=== PATIENT | male | born 1960 | race Caucasian/White ===

== ENCOUNTER → 2020-06-18 09:29 | Outpatient (CLI) | payer OTHER, SELFPAY ==
[2020-06-18 20:13] LABS: SARS-CoV-2 RNA PCR Negative
== END ==
PROVIDERS: PCP Nurse Practitioner Adult Health; Visit Provider Nurse Practitioner Adult Health
DX: J01.90 Acute sinusitis, unspecified (principal); Z20.822 Contact with and (suspected) exposure to COVID-19
CPT/HCPCS: C9803; U0003; U0005

== ENCOUNTER 2025-01-24 01:06 | Day surgery (SDC) | payer MEDICARE, SELFPAY ==
[2025-01-19 15:44] VITALS: BMI 29.7
--- NOTE | 2025-01-19 15:56 | PC.NURSE ---
[facility] has started construction of its new state of the art ER which will open Spring 2026. With this, we anticipate parking may be a challenge for some our surgical patients and families. Parking spaces are limited but are available for all Surgical, obstetrics, and ER patients sharing this lot. If you arrive and find you are having a hard time finding a parking space, please note that we understand the challenges, please drive around the hospital and park near Hospital Entrance 1. When you enter this entrance, you can ask a volunteer to direct or take you back to the surgical waiting area to check in. We appreciate everyone?s understanding of these expected challenges while we build for your future. Report to the Outpatient Waiting Room, entrance under the green pavilion located off [address], at time __7:30AM__ on date __01/24/25__. Planned Procedure Time: _ 9:30AM__ Time changes happen often and if your time is changed the preop area will call you the afternoon before. - You and your visitor will be asked to self-screen and do not enter if you have any COVID symptoms. Please call surgeon if you need to reschedule. - A mask is optional within the hospital at this time. Patients may have clear liquids (water, carbonated beverages, clear teas, apple juice) until 3 hours prior to surgery (6:30AM) with a maximum of 20 ounces. - No food from midnight until time of surgery and no smoking, or chewing tobacco (or any form of nicotine). No chewing gum, candy or mints. Take only the following medications with a SIP of water on the morning of surgery: ____NONE DO NOT STOP ANY OF YOUR OTHER PRESCRIPTION MEDICATIONS PRIOR TO SURGERY EXCEPT THE FOLLOWING Hold all vitamins and supplements for 3 days per anesthesiologist. Medications to discontinue per physician ____HOLD IBUPROFEN 7 DAYS PRE-OP PER DR CRUZ____ Date to take last dose 1- Please no make-up, nail anguillan, hairspray, perfume, deodorant, or body powder the day of surgery.? No jewelry (including any body piercings) or valuables the day of surgery, leave them at home.? Please take a shower or bath the night before, or the morning of, surgery with an antibacterial soap.? Wear comfortable, loose fitting clothing.? - Jewelry must be removed prior to entering the operating room.? Rings and piercings that are not removed may be cut off. - The hospital will not accept responsibility for valuables.? - Please leave all valuables, including medications, at home the day of surgery. If you are going home after surgery, a licensed local [place] truck driver must drive you home.? - NO public transportation without another adult if you receive anesthesia. - We recommend that an adult stay with you for 24 hours following discharge. - We also recommend that you do not drive, make important decision, drink alcoholic beverages, or take any drugs that were not prescribed by your health care provider for at least 24 hours after your discharge time. Follow any additional instructions given to you from your surgeon. Telephone instructions given to ____PATIENT and asked if any additional questions and then verbalized understanding. Patient advised to call surgeon office or pre surgery nurse liaison [phone] if any additional questions.
--- OUTSIDE RECORDS SUMMARY | 2025-01-24 01:09 | XMS_ITS | Clinical Summary ---
Author Organization [facility] Address [address] [place] [address] Care Team Providers Care Abattoir Supervisor Name Role Phone Idalmis Drew MD Primary Care Provider [phone] Allergies Active Allergy Reactions Criticality Noted Date Comments Penicillins Rash Medium 02/05/2015 Medications methocarbamoL (ROBAXIN) 500 mg tablet Take 2 tablets (1,000 mg total) by mouth 3 (three) times a day as needed 09/01/2019 Active atorvastatin (LIPITOR) 20 mg tablet 1 tablet (20 mg total) 03/09/2022 Active ibuprofen (ADVIL,MOTRIN) 200 mg tab/cap Take 3 tablet/capsu le (600 mg total) by mouth 3 (three) times a day Active traMADoL (ULTRAM) 50 mg tablet 04/16/2022 Active Active Problems Problem Noted Date Diagnosed Date Spinal stenosis 03/05/2022 Hyperlipidemia 09/11/2021 Primary hypertension 08/30/2019 Cervical radiculopathy 05/24/2019 Overview (03/27/2022): Added automatically from request for surgery [id number] Hyperglycemia 03/31/2019 Cholecystitis with cholelithiasis 02/05/2015 Immunizations Immunization Administration Dates Next Due Influenza, Quadrivalent, Spl it, Intramuscular 01/05/2019,01/07/2018 Influenza, Quadrivalent, Spl it, Preservative Free, Intramuscular 02/17/2021,01/05/2018 Influenza, Trivalent, IM (MDV) 02/09/2015,2013 Tdap 07/03/2021, 2,06/01/2019,02/09 ZOSTER Recombinant 06/19/2021,02/17/2021 Surgical History Surgery Date Site/Laterality Comments CHOLECYSTECTOMY 03/23/2017 - 03/22/2018 CARPAL TUNNEL RELEASE 03/23/2015 - 03/22/2016 CERVIX SURGERY 03/23/2020 - 03/22/2021 Medical History Medical History Date Comments Gastric reflux Arthritis Anxiety Social History Tobacco Use Types Packs/Day Years Used Date Smoking Tobacco: Unknown Tobacco Cessation:Counseling Given: Not Answered AUDIT-C Answer Date Recorded Q1: How often do you have a drink containing alcohol? 4 or more times a week 04/17/2022 Q2: How many drinks containi ng alcohol do you have on a typical day when you are drinking? 1 or 2 Q3: How often do you have si x or more drinks on one occasion? 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 FUNDRAISING DIRECTOR Gender Identity Male 04/24/2022 12:46 PM EDUCATIONAL FUNDRAISING DIRECTOR Sexual Orientation Not on file Last Filed Vital Signs Vital Sign Reading Time Taken Comments Blood Pressure 138/82 07/10/2022 2:38 PM CDT Pulse 79 07/10/2022 2:38 PM CDT Temperature 36.5 C (97.7 F) 07/10/2022 2:38 PM CDT Respiratory Rate 16 07/10/2022 2:38 PM CDT Oxygen Saturation 97% 07/10/2022 2:38 PM CDT Inhaled Oxygen Concentration - - Weight 73.5 kg (162 lb) 07/10/2022 2:38 PM CDT Height 157.5 cm (5' 2) 07/10/2022 2:38 PM CDT Body Mass Index 29.63 07/10/2022 2:38 PM CDT Plan of Treatment Health Maintenance Due Date Last Done Comments Colon Cancer Screening-Colonoscopy 1960 Depression Screening 1960 Hepatitis C Screening 1960 Prostate Cancer Screening-PSA 1959 Hepatitis B Screening 1977 Pneumococcal vaccine 65+ (1 of 1 - PCV) 2009 Fall Risk Assessment 04/17/2023 04/17/2022 Abdominal Aortic Aneurysm (A AA) Screen 2024 Well Visit 65+ 2024 Covid-19 Vaccine (3 - 2024-2 6 season) 2024 07/03/2021, 06/19/2021 Influenza Vaccine (#1) 2024 , 01/05/2019, 01/07/2018, Additional history exists DTaP/Tdap/Td Vaccine (5 - Td or Tdap) 07/04/2031 07/03/2021, 06/19/2021, 06/01/2019, Additional history exists Zoster Vaccine Completed 06/19/2021, 02/17/2021 Goals Goal Patient Goal Type Associated Problems Recent Progress Patient-Stated? Author CCM Chronic Pain Care Plan Chronic Care Management No Corin Morales APRN Note: Problem: Chronic Pain Goals: 1. Minimize further functional decline 2. Maximize quality of life 3. Control pain Strategies: - Activity/exercise program recommendation - Conservative stepwise pain medicine strategy with multi-disciplinary approach - Recommend healthy lifestyle strategies and compensatory methods as needed Insurance [facility] CHOICE PLUS Care Teams Abattoir Supervisor Relationship Specialty Start Date End Date Idalmis Drew MD [facility] [place] [address] PCP - General Family Medicine 03/12/22
--- OUTSIDE RECORDS SUMMARY | 2025-01-24 01:09 | XMS_ITS | Clinical Summary ---
Author Organization [facility] Address [address] [place] [address] Phone Care Team Providers Care Bottom Worker Name Role Phone Martha Rios MD Primary Care Provider [phone] Allergies Active Allergy Reactions Criticality Noted Date Comments Penicillins Rash Low 02/05/2015 Medications No known medications Active Problems Problem Noted Date Diagnosed Date Cholecystitis with cholelithiasis 02/05/2015 Social History Tobacco Use Types Packs/Day Years Used Date Smoking Tobacco: Never Alcohol Use Standard Drinks/Week Comments Yes 14 (1 standard drink = 0.6 oz pu re alcohol) Sex and Gender Information Value Date Recorded Sex Assigned at Not on file Legal Sex Male 3:45 PM LEAD MOBILE DEVELOPER Gender Identity Not on file Sexual Orientation Not on file Last Filed Vital Signs Vital Sign Reading Time Taken Comments Blood Pressure 134/86 02/14/2015 9:26 AM LEAD MOBILE DEVELOPER rt wrist Pulse 77 02/14/2015 9:26 AM LEAD MOBILE DEVELOPER Temperature 36.6 C (97.8 F) 02/06/2015 9:09 PM LEAD MOBILE DEVELOPER Respiratory Rate 16 02/06/2015 9:09 PM LEAD MOBILE DEVELOPER Oxygen Saturation 95% 02/06/2015 9:09 PM LEAD MOBILE DEVELOPER Inhaled Oxygen Concentration - - Weight 73 kg (161 lb) 02/14/2015 9:26 AM LEAD MOBILE DEVELOPER Height 160 cm (5' 3) 02/14/2015 9:26 AM LEAD MOBILE DEVELOPER Body Mass Index 28.52 02/14/2015 9:26 AM LEAD MOBILE DEVELOPER Plan of Treatment Health Maintenance Due Date Last Done Comments DTAP/TDAP/TD VACCINES (1 - Tdap) 1978 COLORECTAL SCREENING 2004 Colorectal Cancer Screening 2004 FIT-DNA Q 3 years 2004 FIT/FOBT Q 1 year 2004 Flex Sig/CT Colonography Q 5 years 2004 PNEUMOCOCCAL VACCINE 50+ YEARS (1 of 1 - PCV) 03/25/19 10 ZOSTER VACCINE (1 of 2) 2009 INFLUENZA VACCINE (#1) 2024 RSV VACCINE (60+ or ) (1 - 1-dose 75+ series) 2034 Insurance OPTIONS PPO [id number] Advance Directives For more information, please contact: [phone] * Full Code (Latest Code Status on File) Date Activated Date Inactivated Comments 02/06/2015 7:33 PM 02/07/2015 12:17 AM * Full Code Date Activated Date Inactivated Comments 02/06/2015 4:44 PM 02/06/2015 7:33 PM Care Teams Bottom Worker Relationship Specialty Start Date End Date Martha Rios MD [address] [address] PCP - General 03/09/15
--- OUTSIDE RECORDS SUMMARY | 2025-01-24 01:09 | XMS_ITS | Clinical Summary ---
Author Organization [facility] Address [address] [place] [id number] Care Team Providers Care Steam Fitter Name Role Phone Unavailable Primary Care Provider Unavailabl e Social History Tobacco Use Types Packs/Day Years Used Date Smoking Tobacco: Never Assessed Sex and Gender Information Value Date Recorded Sex Assigned at Not on file Legal Sex Male 1:37 PM CIGAR PACKER AND SORTER Gender Identity Not on file Sexual Orientation Not on file Plan of Treatment Health Maintenance Due Date Last Done Comments Colorectal Cancer Screening Colonoscopy (10 Years) 1959 Hepatitis C 1977 DTaP, Tdap and Td Vaccines ( 1 - Tdap) 1978 Pneumococcal Vaccine: 50+ Ye ars (1 of 1 - PCV) 2009 Zoster Vaccines (1 of 2) 2009 COVID-19 Vaccine ( - 2024-2 6 season) 2024 Influenza Adult (#1) 2024 RSV Immunization or 60+ Years (1 - 1-dose 75+ series) 2034 Hepatitis A Vaccines Aged Out No long er eligible based on patient's age to complete this topic Meningococcal B Vaccine Aged Out No l onger eligible based on patient's age to complete this topic Meningococcal Vaccine Aged Out No yamilet palomo eligible based on patient's age to complete this topic RSV Immunizations Under 20 Months Aged Out No longer eligible based on patient's age to complete this topic
--- OUTSIDE RECORDS SUMMARY | 2025-01-24 01:09 | XMS_ITS | Encounter Summary ---
Author Organization [facility] Address [address] [place] [address] Phone Care Team Providers Care Patient Case Coordinator Name Role Phone Octaviano Magda PENA Primary Care Provider [phone] Idalmis Drew MD Primary Care Provider [phone] Encounter Details Date Type Department Care Team (Late st Contact Info) Description 03/24/2019 Telephone [facility] Medicine Neurosurgery [address] [facility] 6th [place] [address] [place] [address] Sola Queen BS Social History Tobacco Use Types Packs/Day Years Used Date Smoking Tobacco: Never Assessed Sex and Gender Information Value Date Recorded Sex Assigned at Not on file Legal Sex Male 1:26 PM PLANT WIRE CHIEF Gender Identity Male 04/24/2022 12:46 PM PLANT WIRE CHIEF Sexual Orientation Not on file documented as of this encounter Miscellaneous Notes * Telephone Encounter - Saranya Velasco BS - 05/13/2019 8:29 AM PLANT WIRE CHIEF Waiting on MRI report from - [facility] T WIRE CHIEF * Telephone Encounter - Debby Hendrix CNA - 05/02/2019 12:34 PM PLANT WIRE CHIEF CER- Appt 06/01 NW- Lvm for pt to call us back- need records and MRI report faxed T WIRE CHIEF * Telephone Encounter - Radha Dejesus CNA - 03/24/2019 11:53 AM PLANT WIRE CHIEF Cer-Sent request for records for 06/01 appt. T WIRE CHIEF * Telephone Encounter - Sola Queen BS - 03/24/2019 11:33 AM PLANT WIRE CHIEF CER- reg/intake updated, waiting on ALL records/imaging reports. Appt 06/01 @12:30PM. He will bring CD and arrive early for Xrays T WIRE CHIEF documented in this encounter Plan of Treatment Not on file documented as of this encounter Visit Diagnoses Not on filedocumented in this encounter Care Teams Patient Case Coordinator Relationship Specialty Start Date End Date Magda Brumfield NP PCP - General Nurse Practitioner 03/24/19 03/11/22 Idalmis Drew MD [facility] [place] [address] PCP - General Family Medicine 03/12/22 documented as of this encounter
--- NOTE | 2025-01-24 08:27 | WPDHPUPDATE1 ---
History and Physical Update Update Date/Time: 01/24/25 08:27 History and Physical has been reviewed, including an updated exam of the patient. There are NO changes in the patient's condition. Risks, benefits, and alternatives have been discussed and questions answered. Patient agrees to proceed with procedure.
--- NOTE | 2025-01-24 08:28 | PM.HPGS ---
History of Present Illness History of Present Illness Consent: Risks, benefits, and alternatives have been discussed and questions answered. Patient agrees to proceed with procedure. Chief complaint: Elev PSA Narrative: Vik Luciano is a 64 year old male with PMHx of HLD who was found to have elevated PSA. On follow-up MRI of the prostate, patient was found to have a suspicious PI-RADS 4 lesion. He presents today for MRI guided fusion biopsy of his prostate. He denies any changes passed his baseline and is ready for the procedure today. He does not take any blood thinners at his baseline. Review of Systems Review of Systems: Constitutional: No fevers or chills Eyes: No changes in vision HENT: No hearing loss Cardiovascular: No chest pain or palpitations Respiratory: No shortness of breath, cough, wheezing GI: No abdominal pain, nausea, or vomiting : No dysuria or difficulty urinating Heme: No easy bruising or bleeding Skin: No rash or itching MSK: No myalgias or joint pain Psych: No hallucinations Neuro: No lateralized numbness or tingling PMFSH Social History Social History (Updated 10/11/24 @ 10:01 by Ashley Guidry MA) Smoking status: Never smoker Alcohol intake: current Drinks per week: 15 Alcohol use details: beer Substance use type: does not use Do You Feel Safe in your Home?: Yes Lack of Transportation: No Lack of Food: Never True Current Housing: I Have Housing Concerned About Future Housing: No Difficulty Paying Gas/Electric Bills: No Difficulty Paying for Meds: No Currently Unemployed: No Education: Trade/Vocational Certificate Difficulty w/ Childcare or Family Care: No Living arrangements: with family Additional living arrangements comments: Occupation/Education: retired Gender identity (if verbalized by the patient): Male Spiritual care concerns: No Agree to blood products: Yes Meds Home Medications and Allergies Home Medications ?Medication ?Instructions ?Recorded ?Confirmed ?Type atorvastatin 20 mg tablet (Lipitor) 20 mg PO DAILY 10/11/24 01/19/25 History methocarbamol 750 mg tablet 750 mg PO DAILY PRN muscle pain 10/11/24 01/19/25 History ibuprofen 200 mg capsule 600 mg PO Q6H PRN pain 01/19/25 01/19/25 History triamcinolone acetonide 0.1 % 1 applic topical BID PRN skin 01/19/25 01/19/25 History topical cream irritation Allergies Allergy/AdvReac Type Severity Reaction Status Date / Time Penicillins Allergy Unknown Unknown Verified 01/19/25 15:41 Exam Narrative: General: Alert, no acute distress Head: Normocephalic, atraumatic Eyes: Extraocular movements intact Neck: No JVD, trachea midline Respiratory: Symmetric chest rise, nonlabored breathing on room air CV: Normal rate, adequate peripheral perfusion Abdomen: Soft, nontender, nondistended Skin: Warm/dry Extremities: No peripheral edema, no cyanosis Neuro: No focal deficits Psych: Answers questions appropriately, appropriate mood Assessment and Plan Assessment and plan (1) Elevated PSA: Code(s): R97.20 - Elevated prostate specific antigen [PSA] Status: Acute Plan 64-year-old male with history of elevated PSA and suspicious PI-RADS lesion on prostate MRI - To OR for MRI guided fusion biopsy of the prostate - Risks, benefits, alternatives reviewed. The patient is amenable to proceed. - Anticipate discharge home thereafter
[2025-01-24 08:30] VITALS: BP 134/78; PULSE 72; RESP 16; TEMP 36.6; O2SAT 98
[2025-01-24] MEDS: LACTATED RINGERS 1,000 ML 30 ML IV CONT (08:30)
--- NOTE | 2025-01-24 09:01 | WPDANESEPPF ---
Anes - Initial Pre Proc Eval Procedure: Operation Date: 01/24/25 09:30 Proposed Procedures p Trans Rectal Ultrasound Guided Fusion Prostate Biopsy - Isaias Padilla MD Date/Time: 01/24/25 09:01 Surgeon: Isaias Padilla MD Pre Op Diagnosis: Elev PSA Patient Data Age: 64 Gender: M Height: 1.6 m Weight: 75 kg Last Vital Signs Temp 36.6 C 01/24/25 08:30 Pulse 72 01/24/25 08:30 Resp 16 01/24/25 08:30 BP 134/78 01/24/25 08:30 Pulse Ox 98 01/24/25 08:30 O2 Del Method Room Air 01/24/25 08:30 Allergies Allergy/AdvReac Type Severity Reaction Status Date / Time Penicillins Allergy Unknown Unknown Verified 01/24/25 08:47 Home Medications ?Medication ?Instructions ?Recorded ?Confirmed ?Type atorvastatin 20 mg tablet (Lipitor) 20 mg PO DAILY 10/11/24 01/19/25 History methocarbamol 750 mg tablet 750 mg PO DAILY PRN muscle pain 10/11/24 01/19/25 History ibuprofen 200 mg capsule 600 mg PO Q6H PRN pain 01/19/25 01/19/25 History triamcinolone acetonide 0.1 % 1 applic topical BID PRN skin 01/19/25 01/19/25 History topical cream irritation Patient hx anesthesia problems: none Family hx anesthesia problems: none Results Review: All pre-operative results and documents have been reviewed as part of the pre-operative evaluation. [facility] Social History Social History (Updated 01/24/25 @ 09:09 by Phi Jasso DO) Smoking status: Never smoker Alcohol intake: current Drinks per week: 15 Alcohol use details: beer 2-3 most days Substance use type: does not use Do You Feel Safe in your Home?: Yes Lack of Transportation: No Lack of Food: Never True Current Housing: I Have Housing Concerned About Future Housing: No Difficulty Paying Gas/Electric Bills: No Difficulty Paying for Meds: No Currently Unemployed: No Education: Trade/Vocational Certificate Difficulty w/ Childcare or Family Care: No Living arrangements: with family Additional living arrangements comments: Occupation/Education: retired Gender identity (if verbalized by the patient): Male Spiritual care concerns: No Agree to blood products: Yes Anes - Eval Final PreProcedure Day of Procedure 01/24/25 09:01 Patient weight: overweight Heart: regular rate and rhythm Lungs: clear to auscultation Airway: Mallampati scale class II Neurological: alert and oriented Last oral intake: >/= 8 hours ASA classification: III Emergent: no Anesthetic plan: proceed Anesthesia type and monitoring: general GIVS and standard monitoring Results Review: All pre-operative results and documents have been reviewed as part of the pre-operative evaluation. Informed Consent: The patient's anesthetic plan and its attendant risks and benefits were discussed with the patient/family/POA. Questions were solicited and answers provided to the satisfaction of the patient/family/POA.
--- NOTE | 2025-01-24 09:02 | S_PTH ---
PATIENT: Vik Luciano LOC: [facility] U#:[id number] AGE/SX: 64/M ROOM: RE01/24/[address]: Isaias Padilla MD : 1960 BED: DIS: 01/24/2025 SPEC #: [id number] RECD: 01/24/25 11:03 STATUS: PATRICIA RE #: [id number] MT: 01/24/25 09:[address]: Isaias Padilla DEPT: [facility] Surgical RECD BY: Ady Lopez ENTERED: 01/24/25 11:08 SP TYPE: Surgical OTHR DR: Magda Brumfield APRN Tissues: A - Prostate Bx B - Prostate Bx C - Prostate Bx D - Prostate Bx E - Prostate Bx F - Prostate Bx G - Prostate Bx H - Prostate Bx I - Prostate Bx J - Prostate Bx K - Prostate Bx L - Prostate Bx M - Prostate Bx Procedures: Unstained Slides Hematoxylin and Eosin Stain Prostate Biopsy
[2025-01-24] MEDS: ceFAZolin 2 GM in SODIUM CHLORIDE 0.9% IV 50 ML 100 ML IVPB (09:17)
[2025-01-24 09:41] VITALS: BP 117/53; PULSE 63; O2SAT 100
--- NOTE | 2025-01-24 09:41 | W.PM.PROC2 ---
Procedure Note - Detailed Date of Procedure 01/24/25 Pre-op Diagnosis Elevated PSA Post-op Diagnosis Same Procedure Performed MRI guided fusion biopsy of the prostate Surgeon Isaias Padilla MD Anesthesia MAC Description of Procedure INDICATIONS FOR PROCEDURE: ?Vik Luciano is a 64 year old gentleman with history of elevated PSA who was found to have suspicious PI-RADS 4 lesion on MRI of his prostate. He presents today for the aforementioned procedure after having reviewed the risks, benefits, and alternatives and having expressed understanding and agreement to proceed. ? DESCRIPTION OF PROCEDURE: ?After informed consent had been obtained, the patient was brought back to the operating theater and placed in the supine position on the operating table, where anesthesia was induced. ?Pre-operative antibiotics were confirmed to have been administered. He was then placed the lateral decubitus position and?prepped and draped in a standard sterile fashion. ?A formal timeout was then performed to confirm the correct patient, procedure, and to address any questions or concerns from the operating room staff; there were none, and all were in agreement to proceed. ? To begin with, we inserted the transrectal ultrasound probe into the patient's rectum atraumatically and identified the?prostate. The MRI images were then fused with the ultrasound images. We then identified the PI RADS lesion seen on MRI and took 3 biopsies of this area. A standard sextant biopsy was then performed, taking two biopsies from the left and right base, mid, and apical portions of the prostate. The ultrasound probe was then removed and digital pressure was applied in the rectum for approximately 1 minute for hemostatic purposes and this essentially concluded the case. The patient was then awoken from anesthesia without complication and transferred to his bed and then taken to the PACU. ?There were no apparent complications and the patient tolerated the procedure well. ? DISPOSITION: ?The patient will be taken to the PACU for further monitoring and be discharged home once clearing PACU protocol. ?The patient will follow-up in about 2 weeks to review pathology and discuss next steps in management. Patient's was provided with an update following the procedure and all questions were answered to their satisfaction at the conclusion of our discussion.
[2025-01-24 10:11] VITALS: BP 129/69; PULSE 62; O2SAT 100
[2025-01-24 10:25] VITALS: BP 114/63; PULSE 66; O2SAT 100
[2025-01-24 10:57] LABS: Hepatitis B Surface Antigen Negative (Negative)
[2025-01-24 11:14] LABS: HIV 1/2 Ab P24 Ag Result Negative (Negative)
== END 2025-01-24 10:25 | disposition home or self-care (01) ==
PROVIDERS: PCP Nurse Practitioner Adult Health; Visit Provider Urology
PROC: (CPT 55700; principal; 2025-01-24 09:30)
DX: C61 Malignant neoplasm of prostate (principal)
CPT/HCPCS: 55700; 76872; 36415; 86703; 86803; 87340; J0690; G0416; G0432; J2003; J2250; J2704; J3010; J7120

== ENCOUNTER 2025-03-10 07:53 | Outpatient (CLI) | payer MEDICARE, SELFPAY ==
--- NOTE | ~2025-03-10 | XR_ITS ---
EXAMINATION: XR chest 2V, 03/10/2025 9:22 JANITORIAL TECH HISTORY: C61 - Malignant neoplasm of prostate, pre-op COMPARISON: No comparisons available. Technique: 2 views obtained. Findings: The lungs are clear, no effusion. No pneumothorax. Heart is normal size. Mediastinal and hilar contours are within normal limits. Bony thorax no acute abnormality. Impression: No acute cardiopulmonary abnormality. Reviewed, dictated and finalized at location P. TORIAL TECH Impression: No acute cardiopulmonary abnormality.
--- OUTSIDE RECORDS SUMMARY | 2025-03-10 08:03 | XMS_ITS | Clinical Summary ---
Author Organization [facility] Address [address] [place] [address] Phone Care Team Providers Care [employer] Solutions Architect Name Role Phone Martha Rios MD Primary Care Provider [phone] Allergies Active Allergy Reactions Criticality Noted Date [...] on file Legal Sex Male 3:45 PM PRIMARY CARE NURSE PRACTITIONER Gender Identity Not on file Sexual Orientation Not on file Last Filed Vital Signs Vital Sign Reading Time Taken Comments Blood Pressure 134/86 02/14/2015 9:26 AM PRIMARY CARE NURSE PRACTITIONER rt wrist Pulse 77 02/14/2015 9:26 AM PRIMARY CARE NURSE PRACTITIONER Temperature 36.6 C (97.8 F) 02/06/2015 9:09 PM PRIMARY CARE NURSE PRACTITIONER Respiratory Rate 16 02/06/2015 9:09 PM PRIMARY CARE NURSE PRACTITIONER Oxygen Saturation 95% 02/06/2015 9:09 PM PRIMARY CARE NURSE PRACTITIONER Inhaled Oxygen Concentration - - Weight 73 kg (161 lb) 02/14/2015 9:26 AM PRIMARY CARE NURSE PRACTITIONER Height 160 cm (5' 3) 02/14/2015 9:26 AM PRIMARY CARE NURSE PRACTITIONER Body Mass Index 28.52 02/14/2015 9:26 AM PRIMARY CARE NURSE PRACTITIONER Plan of Treatment Health Maintenance Due Date [...] 1-dose 75+ series) 2034 Insurance OPTIONS PPO [id number] Advance Directives For more information, please contact: [phone] * Full Code (Latest Code Status on File) Date Activated Date Inactivated Comments 02/06/2015 7:33 PM 02/07/2015 12:17 AM * Full Code Date Activated Date Inactivated Comments 02/06/2015 4:44 PM 02/06/2015 7:33 PM Care Teams [employer] Solutions Architect Relationship Specialty Start Date End Date Martha Rios MD [address] [id number] PCP - General 03/09/15
--- OUTSIDE RECORDS SUMMARY | 2025-03-10 08:03 | XMS_ITS | Data Portability ---
Author Organization [facility], Main Office Address [address] [place] [address] Assessment No assessment recorded. Plan of Treatment Reminders Order Date Submit Date Provider Last Modified By Organization Details Last Modified Time Details Appointments None recorded. Lab vitamin B12 + folate, serum or blood 2023 024 [email or web address] 2 [facility] (Lab), [address] [place], [address], 4 08:50:37 vitamin D3, 25-hydroxy, serum 2023 024 [email or web address] 2 [facility] (Lab), [address] [place], [address], 4 08:50:37 PSA, serum or plasma 2023 024 [email or web address] 2 [facility] (Lab), [address] [place], [address], 4 08:50:37 lipid panel, serum 2023 024 [email or web address] 2 [facility] (Lab), [address] [place], [address], 4 08:50:36 CMP, serum or plasma 2023 024 [email or web address] 2 [facility] (Lab), [address] [place], [address], 4 08:50:36 CK (creatine kinase), total, serum 2023 024 [email or web address] 2 [facility] (Lab), [address] [place], [address], 4 08:50:36 TSH, serum or plasma 2023 024 [email or web address] (Lab), [address] [place], [address], 4 08:50:36 CBC w/ auto diff 2023 024 [email or web address] (Lab), [address] [place], [address], 4 08:50:36 glycohemogl obin, total, blood 2023 024 [email or web address] (Lab), [address] [place], [address], 4 08:50:36 PSA, serum or plasma [address] (Lab), [address] [place], [address], 3 09:10:09 lipid panel, serum [email or web address] [place] [address] (Lab), [address] [place], [address], 3 09:10:09 CMP, serum or plasma [email or web address] [place] [address] (Lab), [address] [place], [address], 3 09:10:09 Referral None recorded. Procedures None recorded. Surgeries None recorded. Imaging None recorded. Medication Orders atorvastati n 20 mg tablet 2023 024 [id number] [facility], [place], [address], 09:50:49 Patient TargetsNo targets recorded. Patient Instructions Encounter Date Encounter Id Patient Instructions Last Modified By Organization Details Last Modified Time 01/18/2024 [id number] He'll check his BP at home .... and let us know [email or web address] Not available 01/18/2024 09:54:29 Reason for Referral None Reported. Results Created Date Observation Date Name Description Value Unit Range Abnormal Flag Note LastModifiedBy Organization Detail LastModifiedTime 08/30/19 22 08/29/2021 HEMOG LOBIN A1C HA1C 5.5 % 4.0-6. 0 Diabe haris Scree elaine Crite yuliya: <5.7% Consi stent with absen ce of diabe haris 5.7-6 .4% Consi stent with incre ased risk for diabe haris (pred iabet es) >OR=6 .5% Consi stent with diabe haris REFER ENCE: Diabe haris Care 2015, 39(Napier ppl.1 ):s13 -s22 Not Available [facility] (Lab) [address] [place], [address], 08/29/2021 17:45:17 08/30/19 22 08/29/2021 COMP MET PANEL /LIVE R carbon dioxide 26 mmol/ L 22-30 Not Available [facility] (Lab) [address] [place], [address], 08/29/2021 13:59:23 08/30/19 22 08/29/2021 COMP MET PANEL /LIVE R sodium 137 mmol/ L 137-14 5 Not Available [facility] (Lab) [address] [place], [address], 08/29/2021 13:59:23 08/30/19 22 08/29/2021 COMP MET PANEL /LIVE R potassium 4.3 mmol/ L 3.5-5. 1 Not Available [facility] (Lab) [address] [place], [address], 08/29/2021 13:59:23 08/30/19 22 08/29/2021 COMP MET PANEL /LIVE R chloride 105 mmol/ L 98-107 Not Available [facility] (Lab) [address] [place], [address], 08/29/2021 13:59:23 08/30/19 22 08/29/2021 COMP MET PANEL /LIVE R anion gap 10.3 mmol/ L 14-22 low Not Available [facility] (Lab) [address] [place], [address], 08/29/2021 13:59:23 08/30/19 22 08/29/2021 COMP MET PANEL /LIVE R glucose 110 mg/dL 70-99 high Not Available [facility] (Lab) [address] [place], [address], 08/29/2021 13:59:23 08/30/19 22 08/29/2021 COMP MET PANEL /LIVE R BUN 13 mg/dL 8-19 Not Available [facility] (Lab) [address] [place], [address], 08/29/2021 13:59:23 08/30/19 22 08/29/2021 COMP MET PANEL /LIVE R creatinine 0.94 mg/dL 0.66-1 .25 Not Available [facility] (Lab) [address] [place], [address], 08/29/2021 13:59:23 08/30/19 22 08/29/2021 COMP MET PANEL /LIVE R GFR >60 Refer ence Range : [place] GFR Healt hy Adult : >60 mL/mi n/1.7 3 m2 Chron ic Kidne y Disea se: 15-60 mL/mi n/1.7 3 m2 Kidne y Failu re: <15/m L/min /1.73 m2 www.n iddk. nih.g ov The MDRD study equat ion has not been valid ated in child shlomo <18 years of age; pregn ant women ; the elder ly >85 years of age; or in some racia l or ethni c subgr oups, such as Hispa nics. Outsi de the valid ated trisha eters , estim ated GFR is less accur ate, requi ring clini jeremias judgm ent on a case- by-ca se basis . Clini jeremias inter preta tion for other races and ages must be made by the clini aleah. The MDRD study equat ion has not been valid ated for the evalu ation of serum creat inine relat ed to nutri mihir l statu s or medic ation usage . For perso ns <18 years of age, a pedia tric GFR calcu lator is avail able on the [facility] websi te: https ://angelia w.kid tiffany.o rg/pr ofess ional s/kdo qi/gf r_cal culat or Not Available [facility] (Lab) [address] [place], [address], 08/29/2021 13:59:23 08/30/19 22 08/29/2021 COMP MET PANEL /LIVE R alkaline phosphatase 54 U/L 38-126 Not Available [facility] (Lab) [address] [place], [address], 08/29/2021 13:59:23 08/30/19 22 08/29/2021 COMP MET PANEL /LIVE R alanine aminotransfe rase 18 U/L 0-50 Not Available [facility] (Lab) [address] [place], [address], 08/29/2021 13:59:23 08/30/19 22 08/29/2021 COMP MET PANEL /LIVE R aspartate aminotransfe rase 26 U/L 15-46 Not Available [facility] (Lab) [address] [place], [address], 08/29/2021 13:59:23 08/30/19 22 08/29/2021 COMP MET PANEL /LIVE R bilirubin, total 0.60 mg/dL 0.20-1 .30 Not Available [facility] (Lab) [address] [place], [address], 08/29/2021 13:59:23 08/30/19 22 08/29/2021 COMP MET PANEL /LIVE R bilirubin, conjugated (direct) 0.00 mg/dL 0.00-0 .30 Not Available [facility] (Lab) [address] [place], [address], 08/29/2021 13:59:23 08/30/19 22 08/29/2021 COMP MET PANEL /LIVE R biliurubin,u ncong. (indirect) 0.50 mg/dL 0.00-1 .1 Not Available [facility] (Lab) [address] [place], [address], 08/29/2021 13:59:23 08/30/19 22 08/29/2021 COMP MET PANEL /LIVE R calcium 9.3 mg/dL 8.4-10 .2 Not Available [facility] (Lab) [address] [place], [address], 08/29/2021 13:59:23 08/30/19 22 08/29/2021 COMP MET PANEL /LIVE R total protein 7.0 g/dL 6.3-8. 2 Not Available [facility] (Lab) [address] [place], [address], 08/29/2021 13:59:23 08/30/19 22 08/29/2021 COMP MET PANEL /LIVE R albumin 4.5 g/dL 3.4-5. 0 Not Available [facility] (Lab) [address] [place], [address], 08/29/2021 13:59:23 08/30/19 22 08/29/2021 COMP MET PANEL /LIVE R globulin 2.5 g/dL 2.6-4. 2 low Not Available [facility] (Lab) [address] [place], [address], 08/29/2021 13:59:23 08/30/19 22 08/29/2021 COMP MET PANEL /LIVE R A/G ratio 1.8 ratio 1.0-2. 0 Not Available [facility] (Lab) [address] [place], [address], 08/29/2021 13:59:23 08/30/19 22 08/29/2021 LIPID PANEL LDL cholesterol, calculated 180 mg/dL 0-130 high NIH ROEL NSUS REPOR T RECOM MENDA TIONS FOR LDL: ADULT CHILD LOW RISK <130 <110 (OPTI MAL LDL) <100 ----- BORDE RLINE : 130-1 59 ----- HIGH RISK: >160 >130 A TRIGL YCERI DE RESUL T >400 INVAL IDATE S THE CALCU LATIO N FOR LDL FRACT IONAT ION - THE LDL RESUL T WILL NOT BE REPOR LOR. Not Available [facility] (Lab) [address] [place], [address], 08/29/2021 13:59:13 08/30/19 22 08/29/2021 LIPID PANEL cholesterol 282 mg/dL 140-19 9 high NIH ROEL NSUS RECOM MENDA TION FOR MIGUEL STERO L: ADULT CHILD LOW RISK: <200 <170 BORDE RLINE : <200- 239 ----- HIGH RISK: >240 >200 Not Available [facility] (Lab) [address] [place], [address], 08/29/2021 13:59:13 08/30/19 22 08/29/2021 LIPID PANEL triglyceride s 83 mg/dL 0-150 NIH ROEL NSUS REPOR T RECOM MENDA TION FOR TRIGL YCERI CARO: ADULT CHILD LOW RISK: <150 ----- BODER LINE: 150-1 99 ----- HIGH RISK: >200 ----- Not Available [facility] (Lab) [address] [place], [address], 08/29/2021 13:59:13 08/30/19 22 08/29/2021 LIPID PANEL HDL cholesterol 85 mg/dL 40- Not Available [facility] (Lab) [address] [place], [address], 08/29/2021 13:59:13 08/30/19 22 08/29/2021 CBC/C OMPLE TE BLD COUNT W/DIF F mean red cell volume 97.1 fL 80.0-9 7.0 high Not Available [facility] (Lab) [address] [place], [address], 08/29/2021 13:49:41 08/30/19 22 08/29/2021 CBC/C OMPLE TE BLD COUNT W/DIF F white blood cells 5.9 x10'3 /uL 4.2-10 .8 Not Available [facility] (Lab) [address] [place], [address], 08/29/2021 13:49:41 08/30/19 22 08/29/2021 CBC/C OMPLE TE BLD COUNT W/DIF F red blood cells 4.52 x10'6 /uL 4.10-5 .80 Not Available [facility] (Lab) [address] [place], [address], 08/29/2021 13:49:41 08/30/19 22 08/29/2021 CBC/C OMPLE TE BLD COUNT W/DIF F hemoglobin 15.2 g/dL 13.2-1 7.0 Not Available [facility] (Lab) [address] [place], [address], 08/29/2021 13:49:41 08/30/19 22 08/29/2021 CBC/C OMPLE TE BLD COUNT W/DIF F hematocrit 43.9 % 39.3-5 0.0 Not Available [facility] (Lab) [address] [place], [address], 08/29/2021 13:49:41 08/30/19 22 08/29/2021 CBC/C OMPLE TE BLD COUNT W/DIF F mean red cell hemoglobin 33.6 pg 27.0-3 3.0 high Not Available [facility] (Lab) [address] [place], [address], 08/29/2021 13:49:41 08/30/19 22 08/29/2021 CBC/C OMPLE TE BLD COUNT W/DIF F mean RBC HGB concentratio n 34.6 g/dL 31.0-3 6.0 Not Available [facility] (Lab) [address] [facility] [place], [address], 08/29/2021 13:49:41 08/30/19 22 08/29/2021 CBC/C OMPLE TE BLD COUNT W/DIF F red cell distribution width 12.1 % 11.8-1 5.5 Not Available [facility] (Lab) [address] [place], [address], 08/29/2021 13:49:41 08/30/19 22 08/29/2021 CBC/C OMPLE TE BLD COUNT W/DIF F platelets 240 x10'3 /uL 150-40 0 Not Available [facility] (Lab) [address] [place], [address], 08/29/2021 13:49:41 08/30/19 22 08/29/2021 CBC/C OMPLE TE BLD COUNT W/DIF F mean platelet volume 9.4 fL 9.0-12 .4 Not Available [facility] (Lab) [address] [facility] [place], [address], 08/29/2021 13:49:41 08/30/19 22 08/29/2021 CBC/C OMPLE TE BLD COUNT W/DIF F neutrophils 64.9 % 39.0-7 2.0 Not Available [facility] (Lab) [address] [place], [address], 08/29/2021 13:49:41 08/30/19 22 08/29/2021 CBC/C OMPLE TE BLD COUNT W/DIF F lymphocytes 21.5 % 16.0-4 7.0 Not Available [facility] (Lab) [address] [place], [address], 08/29/2021 13:49:41 08/30/19 22 08/29/2021 CBC/C OMPLE TE BLD COUNT W/DIF F monocytes 11.3 % 5.0-12 .0 Not Available [facility] (Lab) [address] [place], [address], 08/29/2021 13:49:41 08/30/19 22 08/29/2021 CBC/C OMPLE TE BLD COUNT W/DIF F eosinophils 1.4 % 1.0-7. 0 Not Available [facility] (Lab) [address] [place], [address], 08/29/2021 13:49:41 08/30/19 22 08/29/2021 CBC/C OMPLE TE BLD COUNT W/DIF F basophils 0.7 % 0.0-2. 0 Not Available [facility] (Lab) [address] [place], [address], 08/29/2021 13:49:41 08/30/19 22 08/29/2021 CBC/C OMPLE TE BLD COUNT W/DIF F immature granulocytes 0.2 % 0.00-0 .50 Not Available [facility] (Lab) [address] [place], [address], 08/29/2021 13:49:41 08/30/19 22 08/29/2021 CBC/C OMPLE TE BLD COUNT W/DIF F neutrophils, absolute count 3.80 x10'3 /uL 1.5-8. 0 Not Available [facility] (Lab) [address] [place], [address], 08/29/2021 13:49:41 08/30/19 22 08/29/2021 CBC/C OMPLE TE BLD COUNT W/DIF F lymphocytes, absolute count 1.26 x10'3 /uL 1.07-3 .43 Not Available [facility] (Lab) [address] [place], [address], 08/29/2021 13:49:41 08/30/19 22 08/29/2021 CBC/C OMPLE TE BLD COUNT W/DIF F monocytes, absolute count 0.66 x10'3 /uL 0.29-0 .99 Not Available [facility] (Lab) [address] [place], [address], 08/29/2021 13:49:41 08/30/19 22 08/29/2021 CBC/C OMPLE TE BLD COUNT W/DIF F eosinophils, absolute count 0.08 x10'3 /uL 0.02-0 .53 Not Available [facility] (Lab) [address] [place], [address], 08/29/2021 13:49:41 08/30/19 22 08/29/2021 CBC/C OMPLE TE BLD COUNT W/DIF F basophils, absolute count 0.04 x10'3 /uL 0.01-0 .08 Not Available [facility] (Lab) [address] [place], [address], 08/29/2021 13:49:41 08/30/19 22 08/29/2021 CBC/C OMPLE TE BLD COUNT W/DIF F immature granulocytes ,absolute 0.01 x10'3 /uL 0.00-0 .05 Not Available [facility] (Lab) [address] [place], [address], 08/29/2021 13:49:41 08/30/19 22 08/29/2021 CBC/C OMPLE TE BLD COUNT W/DIF F nucleated red blood cells 0.0 % -0 Not Available [facility] (Lab) [address] [place], [address], 08/29/2021 13:49:41 08/30/19 22 08/29/2021 CBC/C OMPLE TE BLD COUNT W/DIF F NRBC# 0.00 x10'3 /uL Not Available [facility] (Lab) [address] [place], [address], 08/29/2021 13:49:41 10/23/19 22 10/22/2021 COLOG UARD cologuard result reportable negati ve negati ve NEGAT BRANDY TEST RESUL T. A negat brandy Colog uard resul t indic ates a low likel ihood that a color ectal cance r (CRC) or advan boubacar adeno ma (dax omato us polyp s with more advan boubacar pre-m align ant featu res) is prese nt. The [facility] e that a perso n with a negat bradny Colog uard test has a color ectal cance r is less than 1 in 1500 (nega tive predi ctive value >99.9 %) or has an advan boubacar adeno ma is less than 5.3% (nega tive predi ctive value 94.7% ). These data are based on a prosp ectiv e cross -sect ional study of 10,00 0 indiv idual s at [place] ge risk for color ectal cance r who were scree miguel with both Colog uard and colon oscop y. (Kelly barnett T. et al, N Engl J Med 2014; 370(1 4):12 86-12 97) The wesley l value (refe rence range ) for this assay is negat brandy. COLOG UARD RE-SC REENI NG RECOM MENDA TION: Perio dic color ectal cance r scree elaine is an impor tant part of preve ntive healt hcare for asymp tomat ic indiv idual s at avera ge risk for color ectal cance r. Follo wing a negat brandy Colog uard resul t, the Ameri can Cance r Socie ty and U.S. Multi -Soci ety Task Force scree elaine guide lines recom mend a Colog uard re-sc dhaval melendez inter ankita of 3 years . Refer ences : Ameri can Cance r Socie ty Guide line for Color ectal Cance r Scree elaine: https ://angelia w.can cer.o rg/ca ncer/ colon -rect al-ca ncer/ detec tion- diagn osis- stagi ng/ac s-rec ommen datio ns.ht ml.; Avtar JIANG, Elan MCNEAL, Yrn QUINTERO, Color ectal Cance r Scree elaine: Recom menda tions for Physi cians and Patie nts from the [place].S. Multi -Soci ety Task Force on Color ectal Cance r Scree elaine , Am [place] sohail lazo y 2017; 112:1 016-1 030. TEST DESCR IPTIO N: Rudolph site algor ithmi c kee sis of stool DNA-b ioedgardo rasmussen with hemog lobin immun oassa y. Quant itati ve value s of indiv idual bioma rkers are not repor table and are not assoc iated with indiv idual bioma rker resul t refer ence range s. Colog uard is inten ded for color ectal cance r scree elaine of adult s of eithe r sex, 45 years or older , who are at [facility] for color ectal cance r (CRC) . Colog uard has been appro [place] for use by the [place]. FDA. The perfo rmanc e of Colog uard was estab lishe d in a cross secti onal study of [facility] adult s aged 50-84 . Colog uard perfo rmanc e in patie nts ages 45 to 49 years was estim ated by phoebe-g kandis kee sis of near- age group s. Colon oscop ies perfo rmed for a posit brandy resul t may find as the most clini sampson signi fican t lesio n: color ectal cance r [4.0% ], advan boubacar adeno ma (incl uding sessi le radha lor polyp s great er than or equal to 1cm diame ter) [20%] or non- advan boubacar adeno ma [31%] ; or no color ectal neopl eva [45%] . These estim ates are deriv ed from a prosp ectiv e cross -sect ional scree elaine study of 0 indiv idual s at [place] ge risk for color ectal cance r who were scree miguel with both Colog uard and colon oscop y. (Kelly Ace al, N Engl J Med 2014; 370(1 4):12 86-12 97.) Colog uard may produ ce a false negat brandy or false posit brandy resul t (no color ectal cance r or preca ncero us polyp prese nt at colon oscop y follo w up). A negat brandy Colog uard test resul t does not guara ntee the absen ce of CRC or advan boubacar adeno ma (pre- cance r). The curre nt Colog uard scree elaine inter ankita is every 3 years . (Amer ican Cance r Socie ty and U.S. Multi -Soci ety Task Force ). Colog uard perfo rmanc e data in a 0 patie nt pivot al study using colon oscop y as the refer ence metho d can be acces sed at the follo wing locat ion: www.e xactl abs.c om/re irma . Addit ional descr iptio n of the Colog uard test proce ss, warni ngs and preca ution s can be found at www.c gonzález curried.c om. Not Available [facility] [address], [place], [address], 10/31/2021 11:21:08 03/19/20 23 03/19/2023 LIPID PANEL cholesterol 187 mg/dL 140-19 9 NIH ROEL NSUS RECOM MENDA TION FOR MIGUEL STERO L: ADULT CHILD LOW RISK: <200 <170 BORDE RLINE : <200- 239 ----- HIGH RISK: >240 >200 Not Available [facility] (Lab) [address] [place], [address], 03/19/2023 13:52:28 03/19/20 23 03/19/2023 LIPID PANEL triglyceride s 74 mg/dL 0-150 NIH ROEL NSUS REPOR T RECOM MENDA TION FOR TRIGL YCERI CARO: ADULT CHILD LOW RISK: <150 ----- BODER LINE: 150-1 99 ----- HIGH RISK: >200 ----- Not Available [facility] (Lab) [address] [place], [address], 03/19/2023 13:52:28 03/19/20 23 03/19/2023 LIPID PANEL HDL cholesterol 96 mg/dL 40- Not Available [facility] (Lab) [address] [place], [address], 03/19/2023 13:52:28 03/19/20 23 03/19/2023 LIPID PANEL LDL cholesterol, calculated 76 mg/dL 0-130 NIH ROEL NSUS REPOR T RECOM MENDA TIONS FOR LDL: ADULT CHILD LOW RISK <130 <110 (OPTI MAL LDL) <100 ----- BORDE RLINE : 130-1 59 ----- HIGH RISK: >160 >130 A TRIGL YCERI DE RESUL T >400 INVAL IDATE S THE CALCU LATIO N FOR LDL FRACT IONAT ION - THE LDL RESUL T WILL NOT BE REPOR LOR. Not Available [facility] (Lab) [address] [place], [address], 03/19/2023 13:52:28 03/19/20 23 03/19/2023 COMPR EHENS BRANDY METAB OLIC PANEL sodium 138 mmol/ L 137-14 5 Not Available [facility] (Lab) [address] [place], [address], 03/19/2023 13:52:31 03/19/20 23 03/19/2023 COMPR EHENS BRANDY METAB OLIC PANEL potassium 4.4 mmol/ L 3.5-5. 1 Not Available [facility] (Lab) [address] [place], [address], 03/19/2023 13:52:31 03/19/20 23 03/19/2023 COMPR EHENS BRANDY METAB OLIC PANEL chloride 103 mmol/ L 98-107 Not Available [facility] (Lab) [address] [place], [address], 03/19/2023 13:52:31 03/19/20 23 03/19/2023 COMPR EHENS BRANDY METAB OLIC PANEL carbon dioxide 29 mmol/ L 22-30 Not Available [facility] (Lab) [address] [place], [address], 03/19/2023 13:52:31 03/19/20 23 03/19/2023 COMPR EHENS BRANDY METAB OLIC PANEL anion gap 10.4 mmol/ L 14-22 low Not Available [facility] (Lab) [address] [place], [address], 03/19/2023 13:52:31 03/19/20 23 03/19/2023 COMPR EHENS BRANDY METAB OLIC PANEL glucose 124 mg/dL 70-99 high Not Available [facility] (Lab) [address] [place], [address], 03/19/2023 13:52:31 03/19/20 23 03/19/2023 COMPR EHENS BRANDY METAB OLIC PANEL BUN 13 mg/dL 8-19 Not Available [facility] (Lab) [address] [place], [address], 03/19/2023 13:52:31 03/19/20 23 03/19/2023 COMPR EHENS BRANDY METAB OLIC PANEL creatinine 0.88 mg/dL 0.66-1 .25 Not Available [facility] (Lab) [address] [place], [address], 03/19/2023 13:52:31 03/19/20 23 03/19/2023 COMPR EHENS BRANDY METAB OLIC PANEL GFR >60 Refer ence Range : [place] GFR Healt hy Adult : >60 mL/mi n/1.7 3 m2 Chron ic Kidne y Disea se: 15-60 mL/mi n/1.7 3 m2 Kidne y Failu re: <15/m L/min /1.73 m2 www.n iddk. nih.g ov The MDRD study equat ion has not been valid ated in child shlomo <18 years of age; pregn ant women ; the elder ly >85 years of age; or in some racia l or ethni c subgr oups, such as Hispa nics. Outsi de the valid ated trisha eters , estim ated GFR is less accur ate, requi ring clini jeremias judgm ent on a case- by-ca se basis . Clini jeremias inter preta tion for other races and ages must be made by the clini aleah. The MDRD study equat ion has not been valid ated for the evalu ation of serum creat inine relat ed to nutri mihir l statu s or medic ation usage . For perso ns <18 years of age, a pedia tric GFR calcu lator is avail able on the [facility] websi te: https ://angelia lomeli.beulah allen.o van/pr ofess ional s/kdo qi/gf r_cal culat or Not Available [facility] (Lab) [address] [place], [address], 03/19/2023 13:52:31 03/19/20 23 03/19/2023 COMPR EHENS BRANDY METAB OLIC PANEL alkaline phosphatase 53 U/L 38-126 Not Available [facility] (Lab) [address] [place], [address], 03/19/2023 13:52:31 03/19/20 23 03/19/2023 COMPR EHENS BRANDY METAB OLIC PANEL alanine aminotransfe rase 23 U/L 0-50 Not Available [facility] (Lab) [address] [place], [address], 03/19/2023 13:52:31 03/19/20 23 03/19/2023 COMPR EHENS BRANDY METAB OLIC PANEL aspartate aminotransfe rase 26 U/L 15-46 Not Available [facility] (Lab) [address] [place], [address], 03/19/2023 13:52:31 03/19/20 23 03/19/2023 COMPR EHENS BRANDY METAB OLIC PANEL bilirubin, total 0.90 mg/dL 0.20-1 .30 Not Available [facility] (Lab) [address] [place], [address], 03/19/2023 13:52:31 03/19/20 23 03/19/2023 COMPR EHENS BRANDY METAB OLIC PANEL calcium 9.8 mg/dL 8.4-10 .2 Not Available [facility] (Lab) [address] [place], [address], 03/19/2023 13:52:31 03/19/20 23 03/19/2023 COMPR EHENS BRANDY METAB OLIC PANEL total protein 7.2 g/dL 6.3-8. 2 Not Available [facility] (Lab) [address] [place], [address], 03/19/2023 13:52:31 03/19/20 23 03/19/2023 COMPR EHENS BRANDY METAB OLIC PANEL albumin 4.5 g/dL 3.0-4. 4 high Not Available [facility] (Lab) [address] [place], [address], 03/19/2023 13:52:31 03/19/20 23 03/19/2023 COMPR EHENS BRANDY METAB OLIC PANEL globulin 2.7 g/dL 2.6-4. 2 Not Available [facility] (Lab) [address] [place], [address], 03/19/2023 13:52:31 03/19/20 23 03/19/2023 COMPR EHENS BRANDY METAB OLIC PANEL A/G ratio 1.7 ratio 1.0-2. 0 Not Available [facility] (Lab) [address] [place], [address], 03/19/2023 13:52:31 03/19/20 23 03/19/2023 PSA SCREE N PSA medicare screen 2.97 NG/mL 0.00-4 .00 Not Available [facility] (Lab) [address] [place], [address], 03/19/2023 14:35:22 11/15/19 22 XR, lumbo sacra l spine , 4 or more view [facility] [address] [place] [address] [phone] Andrea esqueda Name: USMAN MARKS Access ion #: [id number] Sex: M : 1960 7 Locati on: RA2 Attend ing Physic allison: BRIANNA [facility] Physic allison: BRIANNA MCGRATH Exam Date: 022 11:13 AM Exam Name: XR L SPINE 4V+ Admitt ing Diagno sis(es ): RADIOL OGY REPORT - FINAL EXAM: XR L SPINE 4V+ HISTOR Y: lumbar radicu lopath y COMPAR APPLE: None availa ble. TECHNI QUE: AP, bilate ral obliqu e's, latera l, and coned latera l views of the lumbar sacral juncti on. FINDIN GS: Examin ation of the lumbar spine demons trates modera te osteoa rthrit ic residu als throug hout the thorac olumba r spine. The pedicl es appear intact . There is no radiog raphic eviden ce of spondy lolysi s or spondy lolist hesis. The sacral iliac joints appear normal . There is no fractu re or bone destru ction identi fied. Page 1 of 2 [facility] Patiwade t Name: USMAN MARKS Access ion #: [id number] Sex: M : 1960 7 Exam Date: 11:13 AM Exam Name: XR L SPINE 4V+ Admitt ing Diagno sis(es ): If clinic al sympto ms coleman t, MRI examin ation could be consid ered. IMPRES GILBERTO: No acute proces s. Cholec ystect romana clips noted. Create d and electr onical ly signed by: Bo barry MD Signed Date: 12:45 PM (CT) Dictat ed by: Bo barry MD DD: 12:45 PM (CT) DT: 12:45 PM (CT) Page 2 of 2 [id number] [facility] (Imaging) [address] [place], [address], 05/21/2022 08:54:52 11/15/19 22 11/14/2021 XR, lumba r spine No observ ation record ed. [id number] [facility] [address] [place] [address], [place], [address], 05/21/2022 08:54:52 11/15/19 22 11/14/2021 XR, lumba r spine No observ ation record ed. [id number] [facility] Add On Lab Orders [address] [place], [address], 05/21/2022 08:54:52 11/15/19 22 XR, knee, 3 view [facility] [address] [place] [address] Andrea esqueda Name: USMAN MARKS Access ion #: [id number] Sex: M : 1960 7 Locati on: RA2 Attend ing Physic allison: LIANA Esqueda BRIANNA Orderi ng Physic allison: BRIANNA MCGRATH Exam Date: 11:13 AM Exam Name: XR KNEE LT 3V Admitt ing Diagno sis(es ): RADIOL OGY REPORT - FINAL EXAM: XR KNEE LT 3V HISTOR Y: pain COMPAR APPLE: None. TECHNI QUE: Three views of the left knee were perfor med. FINDIN GS: No acute fractu re or signif icant joint space narrow ing are identi fied about the left knee. No defini te effusi on. IMPRES GILBERTO: Unrema rkable radiog raphs of the left knee. Page 1 of 2 [facility] Andrea esqueda Name: SELINA CATHERINEAraceli Momin Access ion #: [id number] Sex: M : 1960 7 Exam Date: 11:13 AM Exam Name: XR KNEE LT 3V Admitt ing Diagno sis(es ): Create d and electr onical ly signed by: Bo barry MD Signed Date: 12:44 PM (CT) Dictat ed by: Bo barry MD DD: 12:44 PM (CT) DT: 12:44 PM (CT) Page 2 of 2 [id number] [facility] ([facility]) [address] [place], [address], 05/21/2022 08:54:52 01/31/20 22 01/29/2022 MRI, knee, w/o contr ast No observ ation record ed. MIGRATION. [id number] [facility] [address], [place], [address], 05/21/2022 08:54:52 03/05/20 MRI, lumba r spine , w/o contr ast [facility] [address] [place] [address] Rad[place] esqueda Name: USMAN MARKS Access ion #: [id number] Sex: M : 1960 6 Locati on: RA2 Attend ing Physic allison: SELINA CERNA RUNDA Orderi ng Physic allison: SELINA CERNA, RUNDA Exam Date: 2021 8:01 AM Exam Name: MRI L SPINE WO Admitt ing Diagno sis(es ): RADIOL OGY REPORT - FINAL EXAM: MRI L SPINE WO HISTOR Y: radicu lopath y low back pain COMPAR APPLE: None. TECHNI QUE: Multip lanar multis equenc e noncon trast MR images of the lumbar spine were perfor med. Sagita l: T1, T2, Axial: T1, T2, T2 multia ngle. FINDIN GS: Verteb ral bodies : *Image demons trates an area of low T1 signal intens ity within the mid dredgemaster ior aspect of the T11 verteb ral body measur ing 7 mm demons tratin g hyperi ntensi ty with T2 weight ing. *Modic marrow signal intens ity noted at the anteri or inferi or aspect of T12. Page 1 of 3 [facility] Patien t Name: USMAN MARKS Access ion #: [id number] Sex: M : 1960 6 Exam Date: 2021 8:01 AM Exam Name: MRI L SPINE WO Admitt ing Diagno sis(es ): Conus medull karla: L1-2 Disc spaces : All levels demons trate degene rative desicc ation signal intens ity Parave rtebra l soft tissue s: Unrema rkable Vascul ature: No aneury sm T12-L1 : No eviden ce of centra l or neural forami nal stenos is. L1-2: No eviden ce of centra l or neural forami nal stenos is. L2-3: A bulgin g degene rate annulu s is noted withou t eviden ce of centra l or neural forami nal stenos is. L3-4: [employer] ior facet hypert rophic change s and a bulgin g degene rate annulu s result s in modera te bilate ral neural forami nal stenos is and modera te centra l spinal stenos is. L4-5: A bulgin g degene rate annulu s and facet hypert rophy result s in modera te to severe centra l spinal stenos is and modera te to severe bilate ral neural forami nal stenos is and prefor aminal stenos is. L5-S1: Degene rative etiolo gy mild to modera te centra l spinal stenos is with mild-t o-mode rate left neural forami nal stenos is IMPRES GILBERTO: 1. Nonspe cific Bone lesion within the T11 verteb ral body. A CT and bone scan Page 2 of 3 [facility] t Name: USMAN MARKS Access ion #: [id number] Sex: M : 1960 6 Exam Date: 2021 8:01 AM Exam Name: MRI L SPINE WO Admitt ing Diagno sis(es ): of the T11 verteb ral body region will prove benefi cial. 2. Other levels descri bed above. Create d and electr onical ly signed by: Bo barry MD Signed Date: 2021 11:23 AM (CT) Dictat ed by: Bo barry MD DD: 2021 11:23 AM (CT) DT: 2021 11:23 AM (CT) Page 3 of 3 [id number] [facility] ([facility] [address] [place], [address], 05/21/2022 08:54:52 03/05/20 22 03/05/2022 MRI, lumba r spine , w/o contr ast No observ ation record ed. [id number] [facility] [address] [place] [address] , [place], [address], 05/21/2022 08:54:52 Result Notes Documentation Provider Name and Address Organization Details Recorded Time Xr, Knee, 3 View : [facility] [address] [place] [address] Patient Name: VIK MARKS Sex: M : 1960 Location: [facility] Attending Physician: BRIANNA CARRILLO Ordering Physician: BRIANNA CARRILLO Exam Date: 11/14/2021 11:13 AM Exam Name: XR KNEE LT 3V Admitting Diagnosis(es): RADIOLOGY REPORT - FINAL EXAM: XR KNEE LT 3V HISTORY: pain COMPARISON: None. TECHNIQUE: Three views of the left knee were performed. FINDINGS: No acute fracture or significant joint space narrowing are identified about the left knee. No definite effusion. IMPRESSION: Unremarkable radiographs of the left knee. Page 1 of 2 [facility] Patient Name: VIK MARKS Sex: M : 1960 Exam Date: 11/14/2021 11:13 AM Exam Name: XR KNEE LT 3V Admitting Diagnosis(es): Created and electronically signed by: Bo Jiménez MD Signed Date: 11/14/2021 12:44 PM (CT) Dictated by: Bo Jiménez MD (CT) (CT) Page 2 of 2 Not Available [facility] 05/21/2022 08:54:53 Xr, Lumbosacral Spine, 4 Or More View : [address] [address] Patient Name: VIK MARKS Sex: M : 1960 Location: [facility] Attending Physician: BRIANNA CARRILLO Ordering Physician: BRIANNA CARRILLO Exam Date: 11/14/2021 11:13 AM Exam Name: XR L SPINE 4V+ Admitting Diagnosis(es): RADIOLOGY REPORT - FINAL EXAM: XR L SPINE 4V+ HISTORY: lumbar radiculopathy COMPARISON: None available. TECHNIQUE: AP, bilateral oblique's, lateral, and coned lateral views of the lumbar sacral junction. FINDINGS: Examination of the lumbar spine demonstrates moderate osteoarthritic residuals throughout the thoracolumbar spine. The pedicles appear intact. There is no radiographic evidence of spondylolysis or spondylolisthesis. The sacral iliac joints appear normal. There is no fracture or bone destruction identified. Page 1 of 2 [facility] Patient Name: VIK MARKS Sex: M : 1960 Exam Date: 11/14/2021 11:13 AM Exam Name: XR L SPINE 4V+ Admitting Diagnosis(es): If clinical symptoms persist, MRI examination could be considered. IMPRESSION: No acute process. Cholecystectomy clips noted. Created and electronically signed by: Bo Jiménez MD Signed Date: 11/14/2021 12:45 PM (CT) Dictated by: Bo Jiménez MD (CT) (CT) Page 2 of 2 Not Available [facility] 05/21/2022 08:54:53 Mri, Lumbar Spine, W/o Contrast : [address] [address] Patient Name: VIK MARKS Sex: M : 1960 Location: [facility] Attending Physician: IDALMIS ORDAZ Ordering Physician: IDALMIS ORDAZ Exam Date: 03/05/2022 8:01 AM Exam Name: MRI L SPINE WO Admitting Diagnosis(es): RADIOLOGY REPORT - FINAL EXAM: MRI L SPINE WO HISTORY: radiculopathy low back pain COMPARISON: None. TECHNIQUE: Multiplanar multisequence noncontrast MR images of the lumbar spine were performed. Sagital: T1, T2, Axial: T1, T2, T2 multiangle. FINDINGS: Vertebral bodies: *Image demonstrates an area of low T1 signal intensity within the mid posterior aspect of the T11 vertebral body measuring 7 mm demonstrating hyperintensity with T2 weighting. *Modic marrow signal intensity noted at the anterior inferior aspect of T12. Page 1 of 3 [facility] Patient Name: VIK MARKS Sex: M : 1960 Exam Date: 03/05/2022 8:01 AM Exam Name: MRI L SPINE WO Admitting Diagnosis(es): Conus medullaris: L1-2 Disc spaces: All levels demonstrate degenerative desiccation signal intensity Paravertebral soft tissues: Unremarkable Vasculature: No aneurysm T12-L1: No evidence of central or neural foraminal stenosis. L1-2: No evidence of central or neural foraminal stenosis. L2-3: A bulging degenerate annulus is noted without evidence of central or neural foraminal stenosis. L3-4: Posterior facet hypertrophic changes and a bulging degenerate annulus results in moderate bilateral neural foraminal stenosis and moderate central spinal stenosis. L4-5: A bulging degenerate annulus and facet hypertrophy results in moderate to severe central spinal stenosis and moderate to severe bilateral neural foraminal stenosis and preforaminal stenosis. L5-S1: Degenerative etiology mild to moderate central spinal stenosis with [id number] left neural foraminal stenosis IMPRESSION: 1. Nonspecific Bone lesion within the T11 vertebral body. A CT and bone scan Page 2 of 3 [facility] Patient Name: VIK MARKS Sex: Merrill : 1960 Exam Date: 03/05/2022 8:01 AM Exam Name: MRI L SPINE WO Admitting Diagnosis(es): of the T11 vertebral body region will prove beneficial. 2. Other levels described above. Created and electronically signed by: Bo Jiménez MD Signed Date: 03/05/2022 11:23 AM (CT) Dictated by: Bo Jiménez MD (CT) (CT) Page 3 of 3 Not Available [facility] 05/21/2022 08:54:53 Problems Name Problem SNOMED Code Status Onset Date Resolution Date Notes Provider Name and Address Organization Details Recorded Time Hyperglycemia 37012566 Active 2019 Not Available [facility] 4 04:04:39 Cervical radiculopathy 41506006 Active 2019 Not Available [facility] 4 04:04:39 History of surgical procedure on cervical spine 453240974 Active 2019 Not Available [facility] 4 04:04:38 Hyperlipidemi a 79431383 Active 2021 Not Available [facility] 4 04:04:39 Spinal stenosis 14371352 Active 2021 Not Available [facility] 4 04:04:39 Low back pain 817559044 Active 2022 Not Available [facility] 4 04:04:38 Chronic low back pain 837318036 Active 2022 Not Available [facility] 4 04:04:38 SARS-CoV-2 Active 2023 Not Available [facility] 4 04:04:39 Adult health examination Active 2023 FARRAH Beckett [address], [place], [address] , [employer] 4 09:48:13 Screening for malignant neoplasm of prostate Active 2023 FARRAH Beckett [address], [place], [address] , [employer] 4 09:50:22 At increased risk for nutritional problem 999742973 Active 2023 FARRAH Beckett [address], [place], [address] , [employer] 4 09:51:37 Problem Notes None recorded. Procedures Surgical History Date Name Laterality Status Provider Name and Address Organization Details Recorded Time Cholecystectomy completed Not Available [facility] 05/21/2022 08:45:06 Carpal tunnel completed Not Available [facility] 05/21/2022 08:45:06 Imaging Results None recorded. Procedure Notes None recorded. Medical Equipment None Reported. Allergies Allergen ID Allergen Name Allergen Category Reaction Reaction Severity Criticality Documentation Date Start Date Code Code System Note Provider Name and Address Organization Details Recorded Time 42378 Product containin g penicilli n (product) medicatio n Not available Not available Not available 05/21/2022 53055 8001 SNOMED Not Available [facility] 3 08:54:42 Medications Name Sig Start Date Stop Date Status Note LastModified by Organization Details LastModified Time methocarbam ol 500 mg tablet TAKE 2 TABLETS BY MOUTH EVERY 4 HOURS FOR 7 DAYS active Not Available Not Available No t Available promethazin e-DM 6.25 mg-15 mg/5 mL oral syrup TAKE 5 ML BY MOUTH EVERY 4 HOURS NEEDED FOR 10 DAYS 01/17 completed Not Available Not Available Not Available atorvastati n 20 mg tablet Take 1 tablet every day by oral route at bedtime for 90 days. 2023 active Not Available Not Available Not Avai lable clindamycin HCl 300 mg capsule TAKE 1 CAPSULE BY MOUTH EVERY 6 HOURS 08/29 completed Not Available Not Available Not Available ibuprofen 800 mg tablet TAKE 1 TABLET BY MOUTH EVERY 6 HOURS NEEDED active Not Available Not Available No t Available valacyclovi r 1 gram tablet Take 1 tablet 3 times a day by oral route for 20 days. active Not Available Not Available No t Available hydrocodone 5 mg-acetamin ophen 325 mg tablet TAKE 1 TABLET BY MOUTH EVERY 6 HOURS NEEDED FOR 7 DAYS 01/15 completed Not Available Not Available Not Available dexamethaso ne 6 mg tablet TAKE 1 TABLET BY MOUTH ONCE DAILY IN THE MORNING FOR 7 DAYS 01/17 completed Not Available Not Available Not Available Zithromax Z-Josué 250 mg tablet TAKE 2 TABLETS (500 MG) BY ORAL ROUTE ONCE DAILY FOR 1 DAY THEN 1 TABLET (250 MG) BY ORAL ROUTE ONCE DAILY FOR 4 DAYS 01/15 completed Not Available Not Available Not Available tramadol 50 mg tablet TAKE 1 TABLET BY MOUTH TWICE DAILY NEEDED FOR PAIN 01/17 completed Not Available Not Available Not Available methocarbam ol 750 mg tablet Take 1 tablet by mouth three times per day as needed only active Not Available Not Available No t Available buspirone 10 mg tablet Take 1 tablet twice a day by oral route for 30 days. active Not Available Not Available No t Available methylpredn isolone 4 mg tablets in a dose pack Use as directed 02/11 completed Not Available Not Available Not Available Percocet 5 mg-325 mg tablet Take 1 tablet every 6 hours by oral route. 03/05 completed Not Available Not Available Not Available oxycodone 5 mg tablet active Not Available Not Available No t Available Adacel (Tdap Adolesn/Anibal lt)(PF)2 Lf-(2.5-5-3 -5)-5 Lf/0.5 mL IM syringe PHARMACIS T ADMINISTE RED IMMUNIZAT ION ADMINISTE RED AT TIME OF DISPENSIN G active Not Available Not Available No t Available Duexis 800 mg-26.6 mg tablet TAKE 1 TABLET BY MOUTH 3 TIMES DAILY WITH FOOD 03/30 completed Not Available Not Available Not Available Fluvirin 6171-4292(P F) 45 mcg (15 mcg x3)/0.5 mL intramuscul ar syringe 05/31 completed Not Available Not Available Not Available BinaxNOW COVID-19 Ag Self Test kit USE DIRECTED 02/11 completed Not Available Not Available Not Available Paxlovid 300 mg (150 mg x 2)-100 mg tablets in a dose pack Morning Dose-Take all 3 tablets at the same time from the morning dose portion of the blister car (yellow side). Evening Dose-Take all 3 tablets at the same time from the evening dose portion of the blister car (blue side). Five day supply. 01/17 completed Not Available Not Available Not Available Lagevrio 200 mg capsule (EUA) TAKE 4 CAPSULES BY MOUTH EVERY 12 HOURS FOR 5 DAYS 01/17 completed Not Available Not Available Not Available Vitals Date Recorded Body mass index (BMI) Body height Oxygen saturation Heart rate Body temperature Body weight Systolic And Diastolic Provider Name and Address Organization Details Last Updated DateTime 2 28.9 kg/m2 160.02 cm 97 % 76 /min 97.1 [degF] 14254.5 6 g 124/82 mm[Hg] Not Available [facility] 3 08:46:23 Date Recorded Body mass index (BMI) Body height Oxygen saturation Heart rate Body temperature Body weight Systolic And Diastolic Provider Name and Address Organization Details Last Updated DateTime 2 28 kg/m2 160.02 cm 98 % 78 /min 98.4 [degF] 68237.5 9 g 152/90 mm[Hg] Not Available [facility] 3 08:46:23 Date Recorded Body height Body mass index (BMI) Body weight Body temperature Heart rate Oxygen saturation Systolic And Diastolic Provider Name and Address Organization Details Last Updated DateTime 3 160.02 cm 28.7 kg/m2 99923.9 6 g 97.4 [degF] 70 /min 98 % 140/78 mm[Hg] Kristyn calloway CMA [facility] 3 11:06:08 Date Recorded Body height Body mass index (BMI) Body weight Body temperature Heart rate Oxygen saturation Systolic And Diastolic Provider Name and Address Organization Details Last Updated DateTime 4 160.02 cm 28.2 kg/m2 53052.1 9 g 97.9 [degF] 63 /min 100 % 152/90 mm[Hg] Nurys Maldonado RN [facility] 4 09:24:46 Date Recorded Body mass index (BMI) Body height Oxygen saturation Heart rate Body temperature Body weight Systolic And Diastolic Provider Name and Address Organization Details Last Updated DateTime 2 28.7 kg/m2 160.02 cm 97 % 91 /min 98.2 [degF] 00157.9 6 g 160/100 mm[Hg] Not Available [facility] 3 08:46:23 Social History Question Answer Notes LastModified by [employer] Details LastModified Time Tobacco Smoking Status Never Smoker Not Available [facility] 05/21/2022 08:44:38 What Is Your Level Of Caffeine Consumption? Moderate [id number] Information not available 05/21/2022 How Much Tobacco Do You Chew? None [id number] Information not available 05/21/2022 What Type Of Diet Are You Following? REGULAR [id number] Information not available 05/21/2022 Which Illicit Or Recreational Drugs Have You Used? No [id number] Information not available 05/21/2022 Sex: Unknown Functional Status Question Answer Note LastModified by [employer] Details LastModified Time What is your level of alcohol consumption? Moderate [id number] Information not available 05/21/2022 Mental Status None recorded. Family History Relationship Description Onset Age of this Age Resolved Age Notes LastModified by Organization Details LastModified Time Father No current problems or disability [id number] Not available 05/21/2022 08:45:06 Mother No current problems or disability [id number] Not available 05/21/2022 08:45:06 Medical History No medical history recorded. Immunizations Vaccine Type Date Status Note Provider Nam e and Address Organization Details Recorded Time influenza, unspecified formulation 4 completed Nurys Maldonado RN null, [place] - [facility] [employer] 03/14/2024 08:33:02 COVID-19, mRNA, LNP-S, PF, 100 mcg/0.5mL dose or 50 mcg/0.25mL dose 2 completed Not Available [facility] 04/03/2023 04:04:39 Tdap 2 completed Not Available [facility] 04/03/2023 04:04:39 Influenza, split virus, quadrivalent, preservative 9 completed Not Available [facility] 04/03/2023 04:04:39 Influenza, split virus, quadrivalent, preservative 8 completed Not Available [facility] 04/03/2023 04:04:39 Influenza, split virus, trivalent, preservative 4 completed Not Available [facility] 04/03/2023 04:04:39 Past Encounters Encounter ID Performer Location Encounter Start Date Encounter Closed Date Diagnosis/Indication Diagnosis SNOMED-CT Code Diagnosis ICD10 Code Diagnosis IMO Codes Diagnosis Note [id number] [facility] Kym tavarez [facility] [place] [address] [place] [address] 06/19/2020 00:00:00 06/19/2020 11:29:31 [id number] [facility] Kym tavarez [facility] [place] [address] [place] [address] 06/26/2020 00:00:00 06/26/2020 09:50:55 [id number] Idalmis Drew MD [facility] Jarocho sridevi [facility] [place] [address] [place] [address] 08/29/2020 00:00:00 08/29/2020 09:32:53 [id number] Idalmis Drew MD [facility] [place] [address] [place] [address] 12/24/2020 00:00:00 12/24/2020 15:36:47 [id number] Idalmis Drew MD [facility] [place] [address] [place] [address] 08/29/2021 00:00:00 08/29/2021 09:21:01 [id number] [facility] [place] [address] [place] [address] 11/14/2021 00:00:00 11/14/2021 12:12:50 [id number] Idalmis Drew MD [facility] [place] [address] [place] [address] 02/11/2022 00:00:00 02/11/2022 19:21:13 [id number] Idalmis Drew MD [facility] [place] [address] [place] [address] 01/15/2023 10:58:31 01/15/2023 11:26:55 Adult health examination 532344015 Z00.00 Hyperlipidemia 42994280 E78.5 Screening for malignant neoplasm of prostate 918776738 Z12.5 [id number] Crescencio Hurley MD [facility] [place] [address] [place] [address] 01/18/2024 09:03:35 01/18/2024 09:55:07 Hyperlipidemia 06316676 E78.5 Cervical radiculopathy 88838177 M54.12 Chronic low back pain 27 7567620 M54.50 Adult [facility] th examination 839808933 Z00.00 Spinal stenosis 47303512 M48.00 Screening for malignant neoplasm of prostate 602034326 Z12.5 [facility] risk for nutritional problem 825325827 Z91.89 Health Concerns Section Related Observation LastModified by Organization Detai ls LastModified Time None Recorded Concern Status LastModified by Organization Details LastModified Time None Recorded Advance Directives Directive None Recorded Payers Insurance Date Sequence Insurance Name Policy Number Policy Damon Covered Member ID Damon Member ID Guarantor Name 02/24/2024 1 [facility] [id number] Mervat Marks [id number] Vik Marks Notes Date Note Type Note Provider Name and Address Organization Details Recorded Time 01/15/2023 text/html Here today for annual physical. Needs BW. No fmhx of colon cancer and did cologuard and was negative. No pmhx of prostate cancer. No prostate exam. 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 did a cologuard last year FARRAH Beckett [address], [place], [address], [employer] 02/14/2024 17:17:55
--- OUTSIDE RECORDS SUMMARY | 2025-03-10 08:03 | XMS_ITS | Encounter Summary ---
Author Organization [facility] Address [address] [place] [address] Phone Care Team Providers Care Livestock Commission Agent Name Role Phone Octaviano Magda PENA Primary Care Provider [phone] Idalmis Drew MD Primary Care Provider [phone] Encounter Details Date Type Department Care Team (Late st Contact Info) Description 03/24/2019 Telephone [facility] Medicine Neurosurgery [address] 6th [place] [address] [place] [address] Sola Queen BS Social History Tobacco Use Types Packs/Day Years Used Date Smoking Tobacco: Never Assessed Sex and Gender Information Value Date Recorded Sex Assigned at Not on file Legal Sex Male 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 Gender Identity Male 04/24/2022 12:46 PM MANAGER ENVIRONMENTAL HEALTH Sexual Orientation Not on file documented as of this encounter Miscellaneous Notes * Telephone Encounter - Saranya Velacso BS - 05/13/2019 8:29 AM MANAGER ENVIRONMENTAL HEALTH Waiting on MRI report from - [facility]ER ENVIRONMENTAL [facility] * Telephone Encounter - Debby Hendrix CNA - 05/02/2019 12:34 PM MANAGER ENVIRONMENTAL HEALTH CER- Appt 06/01 NW- Lvm for pt to call us back- need records and MRI report faxed [facility]IRONMENT[facility] * Telephone Encounter - Radha Dejesus CNA - 03/24/2019 11:53 AM MANAGER ENVIRONMENTAL HEALTH Cer-Sent request for records for 06/01 appt. GER ENVIRONMENTAL HE[facility] * Telephone Encounter - Sola Queen BS - 03/24/2019 11:33 AM MANAGER ENVIRONMENTAL HEALTH CER- reg/intake updated, waiting on ALL records/imaging reports. Appt 06/01 @12:30PM. He will bring CD and arrive early for Xrays [facility]ER [facility]IRONMENT[facility] documented in this encounter Plan of Treatment Not on file documented as of this encounter Visit Diagnoses Not on filedocumented in this encounter Care Teams Livestock Commission Agent Relationship Specialty Start Date End Date Magda Brumfield NP PCP - General Nurse Practitioner 03/24/19 03/11/22 Idalmis Drew MD [facility] [place] [address] PCP - General Family Medicine 03/12/22 documented as of this encounter
--- OUTSIDE RECORDS SUMMARY | 2025-03-10 08:03 | XMS_ITS | Clinical Summary ---
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
--- NOTE | 2025-03-10 08:54 | ECG_ITS ---
Test Date: 2025-03-10 09:01:52 Measurements Intervals [place] Rate: 60 P: 51 MT: 171 QRS: -17 QRSD: 160 T: -8 QT: 454 QTc: 456 Interpretive Statements SINUS RHYTHM WITH OCCASIONAL VENTRICULAR PREMATURE COMPLEXES RIGHT BUNDLE BRANCH BLOCK BASELINE ARTIFACT- I, II, III, AVR, AVL ,AVF ABNORMAL ECG No previous ECG available for comparison Electronically Signed On 03-10-2025 09:06:41 SENIOR MAINFRAME DEVELOPER by Mundo Navarro D.O.
[2025-03-10 09:26] LABS: Hematocrit 43.3 % (42.0-52.0); Hemoglobin 14.7 g/dL (14.0-18.0); Immature Granulocyte Percent A 0.5 % (0-0.5); Lymphocytes Absolute Auto 1.36 K/mm3 (0.9-3.2); Mean Corpuscular HGB Conc 33.9 g/dl (32-36); Mean Corpuscular Hemoglobin 33.0 pg (26-34); Mean Corpuscular Volume 97.1 fl (80-100); Nucleated Red Blood Cells Absolute Auto 0.000 K/mm3 (0.0-0.012); Nucleated Red Blood Cells Perc 0.0 % (0.0-0.2); Platelet Count Result 223 k/mm3 (150-375); Red Blood Count 4.46 M/mm3 (4.6-6.20); White Blood Count 6.5 K/mm3 (4.5-10.0)
[2025-03-10 09:27] LABS: Add Urine Microscopic? NO; Appearance Urine Clear (Clear); Glucose Urine UA Negative (Negative); Leukocyte Esterase Ur Negative LEU/UL (Negative); Nitrate Urine Negative (Negative); Specific Grav Ur 1.015 (1.001-1.035)
[2025-03-10 09:48] LABS: Alanine Aminotransferase 20 U/L (6-50); Albumin Level 4.6 g/dL (3.5-5.1); Alkaline Phosphatase 54 U/L (38-126); Anion Gap 5 mmol/L (4-12); Aspartate Amino Transferase 28 U/L (17-59); Bilirubin,Total 0.8 mg/dL (0.2-1.3); Blood Urea Nitrogen 14 mg/dL (9-20); Calcium 9.6 mg/dL (8.4-10.2); Carbon Dioxide 29 mmol/L (22-30); Chloride 103 mmol/L (98-107); Estimated Glomerular Filt Rate > 60; Glucose 106 mg/dL (65-110); Potassium 4.2 mmol/L (3.4-5.0); Sodium 137 mmol/L (137-145); Total Protein 7.3 g/dL (6.3-8.2)
[2025-03-10 09:55] LABS: INR 0.9; Prothrombin Time 12.5 Seconds (11.1-14.7)
[2025-03-10 09:56] LABS: Partial Thromboplastin Time 24.6 Seconds (22.3-36.8)
== END 2025-03-10 07:54 | disposition home or self-care (01) ==
LOC: ANHSURGERY 07:58
PROVIDERS: PCP Nurse Practitioner Adult Health; Visit Provider Urology
DX: C61 Malignant neoplasm of prostate (principal); Z01.818 Encounter for other preprocedural examination
CPT/HCPCS: 36415; 71046; 80053; 81003; 85025; 85610; 85730; 86850; 86900; 86901; 93005

== ENCOUNTER 2025-03-14 02:57 | Day surgery (SDC) | payer MEDICARE, SELFPAY ==
--- NOTE | 2025-02-27 07:10 | PM.IMHP2 ---
H&P: HPI History of Present Illness Date/Time: 02/27/25 07:10 Chief Complaint: Prostate cancer Narrative: 02/22/25: ?Pt. referred by Dr. Padilla ?01/2025: ?PSA: 6.0 ?- ?09/02 cores, GGG-1 (5) and GGG-2 ?- ?NCCN Favorable IR ?- ?Volume: 17gm 02/22/25: ?Decipher Prostate ?Decipher Score: 0.58 (0-.45 Low Risk / .45-.60 Int. Risk / >.60 High Risk) in comparison to similar NCCN risk ?- 5-year Risk of Metastasis (with standard therapy): 2.4% ?- 10-year Risk of Metastasis (with standard therapy): 6.1% ?- 15-year Risk of Mortality (with standard therapy): 7.2% ?- Risk of Adverse Pathology at RP: 22% ?58th percentile / 42% of patients with similar clinical and pathological features typically have higher Genomic Scores 02/22/25: ?Opts for RALP/BPLND ?Not sexually active Review of Systems Review of Systems: All systems reviewed & are unremarkable except as noted in HPI and below PMFSH Social History Social History (Updated 01/24/25 @ 09:09 by Phi Jasso DO) Smoking status: Never smoker Alcohol intake: current Drinks per week: 15 Alcohol use details: beer 2-3 most days Substance use type: does not use Lack of Transportation: No Lack of Food: Never True Current Housing: I Have Housing Concerned About Future Housing: No Difficulty Paying Gas/Electric Bills: No Difficulty Paying for Meds: No Currently Unemployed: No Education: Trade/Vocational Certificate Difficulty w/ Childcare or Family Care: No Living arrangements: with family Additional living arrangements comments: Occupation/Education: retired Gender identity (if verbalized by the patient): Male Spiritual care concerns: No Agree to blood products: Yes Meds Home Medications and Allergies Home Medications ?Medication ?Instructions ?Recorded ?Confirmed ?Type atorvastatin 20 mg tablet (Lipitor) 20 mg PO DAILY 10/11/24 01/19/25 History methocarbamol 750 mg tablet 750 mg PO DAILY PRN muscle pain 10/11/24 01/19/25 History ibuprofen 200 mg capsule 600 mg PO Q6H PRN pain 01/19/25 01/19/25 History triamcinolone acetonide 0.1 % 1 applic topical BID PRN skin 01/19/25 01/19/25 History topical cream irritation polyethylene glycol 3350 17 gram 17 g PO DAILY #7 ea 01/24/25 Rx oral powder packet (Miralax) Allergies Allergy/AdvReac Type Severity Reaction Status Date / Time Penicillins Allergy Unknown Unknown Verified 01/24/25 08:47 Exam Const: General: no acute distress Nutritional Appearance: well nourished Orientation/consciousness: patient oriented x3 HENMT: Head: normocephalic and atraumatic Ears: external ears normal Face/Nose/Sinus: normal facial exam Face and sinus: normal facial exam Mouth: Yes lip normal Teeth and gingiva: dentition normal Eyes: General: appearance normal, both eyes and all related structures Alignment and Position: alignment normal Eyelids: eyelids normal Cornea: corneas normal Pupils: Equal, round and reactive pupils present EOM: EOMs intact bilaterally Neck: Neck: normal visual inspection, full ROM and no JVD Chest: Chest palpation & inspection: normal inspection of the chest Resp: Effort & Inspection: normal respiratory effort Auscultation: clear to auscultation bilaterally Cardio: Jugular venous distension: no JVD Rate: regular rate Rhythm: regular rhythm GI: Inspection: non-distended GI Palp: No abdominal tenderness and No Guarding due to palpation present (GI) Auscultation: normal bowel sounds : General: Yes bladder normal to palpation and No CVA tenderness Back/Spine/Pelvis: Back: No CVA tenderness Skin: General skin exam: normal color and no rashes or lesions noted Neuro: General: patient oriented x3 and no focal motor deficits Cranial nerves: Yes Equal, round and reactive pupils present Speech: normal speech Extrem: General: normal to inspection, no cyanosis and no edema Psych: Mental Status: mental status grossly normal Assessment and Plan Assessment and plan (1) Prostate cancer: Code(s): C61 - Malignant neoplasm of prostate Status: Acute Assessment and Plan: Robotic assisted radical prostatectomy with bilateral pelvic lymphadenectomy
[2025-03-10 08:07] VITALS: BP 154/69; PULSE 73; RESP 16; TEMP 37; O2SAT 100; BMI 29.7
--- NOTE | 2025-03-10 08:19 | PC.NURSE ---
[facility] has started construction of its new state of the art ER which will open Spring 2026. With this, we anticipate parking may be a challenge for some our surgical patients and families. Parking spaces are limited but are available for all Surgical, obstetrics, and ER patients sharing this lot. If you arrive and find you are having a hard time finding a parking space, please note that we understand the challenges, please drive around the hospital and park near Hospital Entrance 1. When you enter this entrance, you can ask a volunteer to direct or take you back to the surgical waiting area to check in. We appreciate everyone?s understanding of these expected challenges while we build for your future. Report to the Outpatient Waiting Room, entrance under the green pavilion located off [address], at time __6:00AM___ on date __03/14/25___. Planned Procedure Time: ___7:30AM___.? Time changes happen often and if your time is changed the preop area will call you the afternoon before. - You and your visitor will be asked to self-screen and do not enter if you have any COVID symptoms. Please call surgeon if you need to reschedule. - A mask is optional within the hospital at this time. BOWEL PREP DAY PRIOR TO SURGERY PER DR SAMUEL. Patients may have clear liquids (water, carbonated beverages, clear teas, apple juice) until 3 hours prior to surgery (4:30AM) with a maximum of 20 ounces. - No food from midnight until time of surgery and no smoking, or chewing tobacco (or any form of nicotine). No chewing gum, candy or mints. Take only the following medications with a SIP of water on the morning of surgery: ____NONE DO NOT STOP ANY OF YOUR OTHER PRESCRIPTION MEDICATIONS PRIOR TO SURGERY EXCEPT THE FOLLOWING Hold all vitamins and supplements for 3 days per anesthesiologist. Medications to discontinue per physician __HOLD IBUPROFEN(ALL NSAIDS) 7 DAYS PRE-OP PER DR SAMUEL___ Date to take last dose___03/06/25 Please no make-up, nail luxembourger, hairspray, perfume, deodorant, or body powder the day of surgery.? No jewelry (including any body piercings) or valuables the day of surgery, leave them at home.? Please take a shower or bath the night before, or the morning of, surgery with an antibacterial soap.? Wear comfortable, loose fitting clothing.? - Jewelry must be removed prior to entering the operating room.? Rings and piercings that are not removed may be cut off. - The hospital will not accept responsibility for valuables.? - Please leave all valuables, including medications, at home the day of surgery. If you are going home after surgery, a licensed truss driver helper must drive you home.? - NO public transportation without another adult if you receive anesthesia. - We recommend that an adult stay with you for 24 hours following discharge. - We also recommend that you do not drive, make important decision, drink alcoholic beverages, or take any drugs that were not prescribed by your health care provider for at least 24 hours after your discharge time. Follow any additional instructions given to you from your surgeon. Telephone instructions given to ____PATIENT & WIFE and asked if any additional questions and then verbalized understanding. Patient advised to call surgeon office or pre surgery nurse liaison [phone] if any additional questions.
[2025-03-14] VITALS (16 sets, daily range): BP systolic 118–157; BP diastolic 65–84; PULSE 77–109; RESP 12–18; TEMP 36.3–37.3; O2SAT 93–100
[2025-03-14] MEDS: LACTATED RINGERS 1,000 ML 30 ML IV CONT ×2 (06:30→10:51)
--- NOTE | 2025-03-14 06:47 | WPDHPUPDATE1 ---
History and Physical Update Update Date/Time: 03/14/25 06:47 History and Physical has been reviewed, including an updated exam of the patient. There are NO changes in the patient's condition. Risks, benefits, and alternatives have been discussed and questions answered. Patient agrees to proceed with procedure.
--- NOTE | 2025-03-14 07:25 | WPDANESEPPF ---
Anes - Initial Pre Proc Eval Procedure: Operation Date: 03/14/25 07:30 Proposed Procedures p Robotic Assisted Laparoscopic Prostatectomy with Bilateral Pelvic Lymph Node Dissection - Markus Kowalski MD Date/Time: 03/14/25 07:25 Surgeon: Markus Kowalski MD Pre Op Diagnosis: prostate CA Patient Data Age: 64 Gender: M Height: 1.61 m Weight: 75 kg Last Vital Signs Temp 98.1 F 03/14/25 06:30 Pulse 77 03/14/25 06:30 Resp 16 03/14/25 06:30 BP 142/83 H 03/14/25 06:30 Pulse Ox 98 03/14/25 06:30 O2 Del Method Room Air 03/14/25 06:30 Allergies Allergy/AdvReac Type Severity Reaction Status Date / Time Penicillins Allergy Unknown RASH Verified 03/14/25 06:43 Home Medications ?Medication ?Instructions ?Recorded ?Confirmed ?Type atorvastatin 20 mg tablet (Lipitor) 20 mg PO DAILY 10/11/24 03/10/25 History methocarbamol 750 mg tablet 750 mg PO DAILY PRN muscle pain 10/11/24 03/10/25 History ibuprofen 200 mg capsule 600 mg PO Q6H PRN pain 01/19/25 03/10/25 History triamcinolone acetonide 0.1 % 1 applic topical BID PRN skin 01/19/25 03/10/25 History topical cream irritation polyethylene glycol 3350 17 gram 17 g PO DAILY PRN constipation 03/10/25 03/10/25 History oral powder packet (Miralax) Patient hx anesthesia problems: none Family hx anesthesia problems: none Results Review: All pre-operative results and documents have been reviewed as part of the pre-operative evaluation. [facility] Social History Social History (Updated 01/24/25 @ 09:09 by Phi Jasso DO) Smoking status: Never smoker Alcohol intake: current Drinks per week: 15 Alcohol use details: beer 2-3 most days Substance use type: does not use Lack of Transportation: No Lack of Food: Never True Current Housing: I Have Housing Concerned About Future Housing: No Difficulty Paying Gas/Electric Bills: No Difficulty Paying for Meds: No Currently Unemployed: No Education: Trade/Vocational Certificate Difficulty w/ Childcare or Family Care: No Living arrangements: with family Additional living arrangements comments: Occupation/Education: retired Gender identity (if verbalized by the patient): Male Spiritual care concerns: No Agree to blood products: Yes Anes - Eval Final PreProcedure Day of Procedure 03/14/25 07:25 Patient weight: normal Heart: regular rate and rhythm Lungs: clear to auscultation Airway: Mallampati scale class II Neurological: alert and oriented Last oral intake: >/= 8 hours ASA classification: III Emergent: no Anesthetic plan: proceed Anesthesia type and monitoring: general ETT and standard monitoring Results Review: All pre-operative results and documents have been reviewed as part of the pre-operative evaluation. Informed Consent: The patient's anesthetic plan and its attendant risks and benefits were discussed with the patient/family/POA. Questions were solicited and answers provided to the satisfaction of the patient/family/POA.
[2025-03-14] MEDS: ceFAZolin 2 GM in SODIUM CHLORIDE 0.9% IV 50 ML 100 ML IVPB (07:31)
--- NOTE | 2025-03-14 09:05 | S_PTH ---
PATIENT: Vik Luciano LOC: [facility] U#:[id number] AGE/SX: 64/M ROOM: RE03/14/[address]: Markus Kowalski MD : 1960 BED: DIS: 03/15/2025 SPEC #: [id number] RECD: 03/14/25 09:35 STATUS: PATRICIA REJostin #: [id number] MT: 03/14/25 09:[address]: Markus Kowalski DEPT: [facility] Surgical RECD BY: Ady Lopez ENTERED: 03/14/25 09:35 SP TYPE: Surgical OTHR DR: Magda Brumfield APRN Tissues: A - Lymph Node B - Lymph Node C - Prostate Procedures: Hematoxylin and Eosin Stain Gross and Microscopic Level 4 Gross and Microscopic Level 6
[2025-03-14] MEDS: KETOROLAC 30 MG/ML VIAL (*BKC) IV PUSH (10:35)
--- NOTE | 2025-03-14 10:57 | P.OP_ITS ---
Procedure Note - Detailed Date of Procedure 03/14/25 Pre-op Diagnosis Prostate cancer Post-op Diagnosis Same Procedure Performed Robotic assisted radical prostatectomy, bilateral pelvic lymphadenectomy Surgeon Markus Kowalski MD Anesthesia General Description of Procedure The patient was brought to the operative suite, where he was prepped and draped in routine sterile fashion while in a dorsal lithotomy, deep Trendelenburg position. A supraumbilical 10 mm trocar was placed after insufflation of the abdomen with a Veress needle. Three robotic ports were then placed under direct vision. Two of these were placed in the right lower quadrant - 10 cm and 20 cm lateral to, and in line with, the umbilicus. A third robotic trocar was placed 10 cm to the left of the umbilicus, and 20 cm to the left of the umbilicus, a 12 mm standard laparoscopic trocar was placed to be used as an psychiatric technician assistant port. Lastly, a 5 mm trocar was placed in the left upper quadrant midway between the umbilicus and the left robotic trocar. Attention was then turned to the prostatectomy. I opted for a posterior approach in this patient. An incision was made in the parietal peritoneum along the posterior bladder/posterior prostate about 2 cm above the reflection of the peritoneum over the anterior rectum. The seminal vesicles and vas deferens were immediately identified. Dissection is undertaken in a fashion so as to avoid electrocautery as much as possible, particularly near the tips of the seminal vesicles. Dissection was also carried out in the midline so as to avoid any encounters with the ureters. The vas deferens and the seminal vesicles were dissected in their entirety to the base of the prostate. The plane anterior to Denoviller's fascia, anterior to the rectum and posterior to the prostate was then developed. I then dropped the bladder by incising the anterior parietal peritoneum just lateral to the median umbilical ligaments bilaterally. The bladder was dropped from the anterior abdominal and pelvic wall. The endopelvic fascia was identified and incised bilaterally, allowing for dissection of the posterior- lateral aspect of the prostate. The puboprostatic ligaments were transected near their origin from the posterior pubic ramus. This posterior lateral dissection of the prostate is also undertaken in a fashion so as to avoid electrocautery as much as possible. The dorsal vein of the penis is then secured with an 0 -Vicryl ligature. Attention is then turned to the bladder neck. The anterior bladder neck is incised at the vesico-prostatic junction. The previously placed urethral catheter was drawn through the urethrotomy. A very small bladder neck was maintained throughout the remainder of this dissection. The posterior bladder neck was incised in a fashion so as to avoid any injury to the ureteral orifices. Again, the small aperture of the bladder neck was maintained. The previously dissected vas deferens and the seminal vesicles were brought through the posterior bladder neck incision. The lateral prostatic pedicles were then carefully dissected from the lateral aspect of the prostate bilaterally. The prostatic pedicles were secured with Weck clips and transected. The neurovascular bundles were carefully dissected from the posterior-lateral aspect of the prostate. The dorsal vein of the penis was incised with electrocautery. Using cold scissors, the urethra was incised. After withdrawing the previously placed urethral catheter, the posterior urethra was sharply incised, as was the rectalurethralis muscle. Attention was then turned to an extended bilateral pelvic lymphadenectomy. The limits of this dissection were similar bilaterally. Specifically, the limits were the bifurcation of the common iliac vein proximally, the Sekou's ligament distally, the pevic floor posteriorly. the pelvic sidewall laterally and the anterior aspect to the external iliac artery laterally. This dissection was undertaken with care to avoid any injury to the obturator nerve. The prostate, seminal vesicles and pelvic nodes were then placed in a specimen bag. The pelvis was copiously irrigated with saline. [Posterior bladder neck reconstruction was undertaken by reapproximating the retrotrigonal tissue of the bladder to the rectalurethralis muscle using 2 running 3-0 V-lock sutures.] Urethrovesical anastomosis was then undertaken using similar two 3-0 V-lock sutures across a 20-Barbadian urethral catheter. The catheter was irrigated, and there was found to be no evidence of an irrigant extravasation. I opted not to place a pelvic drain. The robot is undocked, and the trocars were removed. The specimen was removed through the supraumbilical incision. The anterior rectus fascia at that suprapubic site was closed with a looped 0-PDS. Subcutaneous tissue was irrigated. Skin incisions were closed with 4-0 Vicryl subcuticular. Blood loss throughout this was 75cc. The patient tolerated the procedure well, was taken to recovery room in good condition. Estimated Blood Loss 75 Drains No Packing No Complications No immediate complications Condition Stable Disposition PACU
[2025-03-14] MEDS: fentaNYL CITRATE INJ (*CRX) 100 MCG/2 ML VIAL 25 MCG IV PUSH ×4 (11:00→12:11)
[2025-03-14] MEDS: PROPARACAINE HCL 0.5% 15 ML OPHTH SOLN 1 DROP EACH EYE (13:01)
--- NOTE | 2025-03-14 13:02 | SUR.PHASEI ---
1300 - dr. morales called in regards to pt's c/o irritated left eye. order received for eye drops.
[2025-03-14] MEDS: LACTATED RINGERS 1,000 ML 125 ML IV CONT ×2 (13:58→19:44)
--- NOTE | 2025-03-14 14:17 | ADMGEN ---
This patient, Vik Luciano, was admitted to 3 Med Surg Room 325-02. Patient/family oriented to hospital policies and general routines including ID bracelet, bed and alarms, visiting hours, pain management, procedures, bathroom and other care routines, personal items, smoking policy, room service/diet, and visiting hours. Information on how to activate the Rapid Response Team has been discussed. Patient/Family are encouraged to report perceived risks to care and to ask questions if they do not understand what they are told or what they should do. Report from Daniella in PACU.
[2025-03-14] MEDS: KETOROLAC 15 MG/ML VIAL (*BKC) IV PUSH ×2 (16:57→22:55)
[2025-03-14] MEDS: ATORVASTATIN 20 MG TABLET PO (19:44)
[2025-03-15 03:11] VITALS: BP 144/76; PULSE 82; RESP 18; TEMP 36.6; O2SAT 96
[2025-03-15] MEDS: ARTIFICIAL TEARS OPHTH SOLN 15 ML BOTTLE 1 DROP EACH EYE (04:02)
[2025-03-15] MEDS: LACTATED RINGERS 1,000 ML 125 ML IV CONT (04:02)
[2025-03-15] MEDS: KETOROLAC 15 MG/ML VIAL (*BKC) IV PUSH (05:00)
[2025-03-15 05:48] LABS: Hematocrit 37.3 % (42.0-52.0); Hemoglobin 12.6 g/dL (14.0-18.0)
[2025-03-15 06:05] LABS: Anion Gap 2 mmol/L (4-12); Blood Urea Nitrogen 10 mg/dL (9-20); Calcium 8.5 mg/dL (8.4-10.2); Carbon Dioxide 27 mmol/L (22-30); Chloride 107 mmol/L (98-107); Estimated CRCL calculation 58 ml/min; Estimated Glomerular Filt Rate > 60; Glucose 101 mg/dL (65-110); Potassium 4.0 mmol/L (3.4-5.0); Sodium 136 mmol/L (137-145)
--- NOTE | 2025-03-15 12:51 | P.DS_ITS ---
DS: Admitting Diagnosis Discharge Date 03/15/25 Admitting Diagnosis prostate cancer DS: Discharge Diagnosis Discharge Diagnosis Plan POD 1 Robotic assisted radical prostatectomy, bilateral pelvic lymphadenectomy. DS: Summary Hospital Course Hospital Course: Robotic assisted radical prostatectomy, bilateral pelvic lymphadenectomy Status at Discharge Functional status at discharge: independent ambulation Time Spent with Patient Time attestation: Total time spent providing and/or coordinating discharge services: Exam Const: General: comfortable and no acute distress Eyes: General: appearance normal, both eyes and all related structures Resp: Effort & Inspection: normal respiratory effort GI: GI Palp: Yes Soft to palpation Urinary Catheter: Urinary Catheter: patent and draining and urine clear (yellow) Skin: General skin exam: normal color Neuro: General: gait normal Psych: Mental Status: mental status grossly normal Affect: normal affect DS: Data Data Completed and Pending Pending studies at discharge: Pending at discharge 03/14/25 09:05 Surgical [PTH] Routine Surgical [PTH] Routine Surgical [PTH] Routine Labs on day of discharge: Labs from last 24 hours 03/15/25 05:29 Hgb 12.6 L Hct 37.3 L Sodium 136 L Potassium 4.0 Chloride 107 Carbon Dioxide 27 Anion Gap 2 L BUN 10 Creatinine 0.92 Estim Creat Clear Calc 58 Estimated GFR > 60 Glucose 101 Calcium 8.5 Discharge Plan Discharge Patient Disposition: Home Discharge Instructions: 1) Moses catheter -> leg bag / bedside bag at night. 2) No lifting/straining >15lbs. x3 weeks. 3) No driving x1-week. 4) Resume normal, pre-operative diet. 5) My office will contact regarding follow-up in 1-week with cystogram. Patient Language: [place] Stand Alone Forms: General Discharge Instructions Discharge Medications: New hydrocodone-acetaminophen 5-325 mg tablet 1 - 2 tablet PO Q6H PRN (Reason: pain) Qty: 20 0RF ciprofloxacin HCl 500 mg tablet 500 mg PO Q12H Qty: 10 0RF docusate sodium [Colace] 100 mg capsule 100 mg PO BID Qty: 14 0RF hyoscyamine sulfate [Levsin/SL] 0.125 mg tablet, sublingual 0.125 mg sublingual QID Qty: 20 0RF Continued atorvastatin [Lipitor] 20 mg tablet 20 mg PO DAILY methocarbamol 750 mg tablet 750 mg PO DAILY PRN (Reason: muscle pain) polyethylene glycol 3350 [Miralax] 17 gram powder in packet 17 g PO DAILY PRN (Reason: constipation) ibuprofen 200 mg capsule 600 mg PO Q6H PRN (Reason: pain) triamcinolone acetonide 0.1 % cream 1 applic topical BID PRN (Reason: skin irritation)
== END 2025-03-15 13:15 | disposition home or self-care (01) ==
LOC: ANHSURGERY 07:37 → ANH3MEDSUR 13:30
PROVIDERS: PCP Nurse Practitioner Adult Health; Visit Provider Urology
PROC: 0VT04ZZ Resection of Prostate, Percutaneous Endoscopic Approach (ICD-10-PCS; CPT 55867; principal; 2025-03-14 07:30)
DX: C61 Malignant neoplasm of prostate (principal)
CPT/HCPCS: 55866; 38571; S2900; 36415; 80048; 85014; 85018; 88305; 88309; J0690; A9270; J1100; J1171; J1885; J2003; J2250; J2405; J2704; J3010; J7030; J7120; Q9968

== ENCOUNTER 2025-03-21 11:55 | Outpatient (CLI) | payer MEDICARE, SELFPAY ==
--- NOTE | ~2025-03-21 | XR_ITS ---
EXAMINATION: CYSTOGRAM DATE: 03/21/2025 12:45 INDICATION: Status post prostatectomy for prostate cancer TECHNIQUE: Initial patient information coordinator radiograph of the pelvis was performed. There was retrograde administration of Omnipaque 350 mixed with saline contrast into patient's existing Moses catheter. Fluoroscopic images of the pelvis were obtained. A post-void image was also performed. Fluoroscopy exposure time was 0.7 minutes. Total DAP was 8.028 Gycm^2. FINDINGS: Contrast distends the bladder which demonstrates a trabeculated mucosal surface with multiple small bladder diverticula consistent with sequela of chronic outlet obstruction. No extraluminal leakage of contrast. IMPRESSION: 1. No extraluminal leakage of contrast. Reviewed, dictated and finalized at location A. 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
--- OUTSIDE RECORDS SUMMARY | 2025-03-21 12:31 | XMS_ITS | Clinical Summary ---
Author Organization [facility] Address [address] [place] [address] Phone Care Team Providers Care Tuckpointer Name Role Phone Martha Rios MD Primary Care Provider +1- [phone] Allergies Active Allergy Reactions Criticality Noted Date [...] on file Legal Sex Male 3:45 PM SPECIAL EFFECTS TECHNICIAN Gender Identity Not on file Sexual Orientation Not on file Last Filed Vital Signs Vital Sign Reading Time Taken Comments Blood Pressure 134/86 02/14/2015 9:26 AM SPECIAL EFFECTS TECHNICIAN rt wrist Pulse 77 02/14/2015 9:26 AM SPECIAL EFFECTS TECHNICIAN Temperature 36.6 C (97.8 F) 02/06/2015 9:09 PM SPECIAL EFFECTS TECHNICIAN Respiratory Rate 16 02/06/2015 9:09 PM SPECIAL EFFECTS TECHNICIAN Oxygen Saturation 95% 02/06/2015 9:09 PM SPECIAL EFFECTS TECHNICIAN Inhaled Oxygen Concentration - - Weight 73 kg (161 lb) 02/14/2015 9:26 AM SPECIAL EFFECTS TECHNICIAN Height 160 cm (5' 3) 02/14/2015 9:26 AM SPECIAL EFFECTS TECHNICIAN Body Mass Index 28.52 02/14/2015 9:26 AM SPECIAL EFFECTS TECHNICIAN Plan of Treatment Health Maintenance Due Date [...] 1-dose 75+ series) 2034 Insurance [employer] PPO [id number] Advance Directives For more information, please contact: [phone] * Full Code (Latest Code Status on File) Date Activated Date Inactivated Comments 02/06/2015 7:33 PM 02/07/2015 12:17 AM * Full Code Date Activated Date Inactivated Comments 02/06/2015 4:44 PM 02/06/2015 7:33 PM Care Teams Tuckpointer Relationship Specialty Start Date End Date Martha Rios MD [address] [address] PCP - General 03/09/15
--- OUTSIDE RECORDS SUMMARY | 2025-03-21 12:31 | XMS_ITS | Clinical Summary ---
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
--- OUTSIDE RECORDS SUMMARY | 2025-03-21 12:31 | XMS_ITS | Encounter Summary ---
Author Organization [facility] Address [address] [place] [address] Phone Care Team Providers Care Rv Body Mechanic Name Role Phone Octaviano Magda PENA Primary Care Provider [phone] Idalmis Drew MD Primary Care Provider [phone] Encounter Details Date Type Department Care Team (Late st Contact Info) Description 03/24/2019 Telephone [facility] Medicine Neurosurgery [address] 6th [place] [address] [place] [address] Sola Queen BS Social History Tobacco Use Types Packs/Day Years Used Date Smoking Tobacco: Never Assessed Sex and Gender Information Value Date Recorded Sex Assigned at Not on file Legal Sex Male 1:26 PM SALES ASSISTANT Gender Identity Male 04/24/2022 12:46 PM SALES ASSISTANT Sexual Orientation Not on file documented as of this encounter Miscellaneous Notes * Telephone Encounter - Saranya Velasco BS - 05/13/2019 8:29 AM SALES ASSISTANT Waiting on MRI report from - [facility] S ASSISTANT * Telephone Encounter - Debby Hendrix CNA - 05/02/2019 12:34 PM SALES ASSISTANT CER- Appt 06/01 NW- Lvm for pt to call us back- need records and MRI report faxed S ASSISTANT * Telephone Encounter - Radha Dejesus CNA - 03/24/2019 11:53 AM SALES ASSISTANT Cer-Sent request for records for 06/01 appt. S ASSISTANT * Telephone Encounter - Sola Queen BS - 03/24/2019 11:33 AM SALES ASSISTANT CER- reg/intake updated, waiting on ALL records/imaging reports. Appt 06/01 @12:30PM. He will bring CD and arrive early for Xrays S ASSISTANT documented in this encounter Plan of Treatment Not on file documented as of this encounter Visit Diagnoses Not on filedocumented in this encounter Care Teams Rv Body Mechanic Relationship Specialty Start Date End Date Magad Brumfield NP PCP - General Nurse Practitioner 03/24/19 03/11/22 Idalmis Drew MD [facility] [place] [address] PCP - General Family Medicine 03/12/22 documented as of this encounter
--- OUTSIDE RECORDS SUMMARY | 2025-03-21 12:31 | XMS_ITS | Data Portability ---
Author Organization [facility] [email or web address], Main Office Address [address] [place] [address] Assessment No assessment recorded. Plan of Treatment Reminders Order Date Submit Date Provider Last Modified By Organization Details Last Modified Time Details Appointments None recorded. Lab vitamin B12 + folate, serum or blood 2023 024 [email or web address] 2 [facility] (Lab), [address] [place], [address], 4 08:50:37 vitamin D3, 25-hydroxy, serum 2023 024 [email or web address] 2 [facility] (Lab), [address] [place], [address], 4 08:50:37 PSA, serum or plasma 2023 024 [email or web address] 2 [facility] (Lab), [address] [place], [address], 4 08:50:37 lipid panel, serum 2023 024 [email or web address] 2 [facility] (Lab), [address] [place], [address], 4 08:50:36 CMP, serum or plasma 2023 024 [email or web address] 2 [facility] (Lab), [address] [place], [address], 4 08:50:36 CK (creatine kinase), total, serum 2023 024 [email or web address] 2 [facility] (Lab), [address] [place], [address], 4 08:50:36 TSH, serum or plasma 2023 [email or web address] (Lab), [address] [place], [address], 4 08:50:36 CBC w/ auto diff 2023 024 [email or web address] (Lab), [address] [place], [address], 4 08:50:36 glycohemogl obin, total, blood 2023 024 [email or web address] (Lab), [address] [place], [address], 4 08:50:36 PSA, serum or plasma [address] (Lab), [address] [place], [address], 3 09:10:09 lipid panel, serum [email or web address] [place] [address] (Lab), [address] [place], [address], 3 09:10:09 CMP, serum or plasma [email or web address] [place] [address] (Lab), [address] [place], [address], 3 09:10:09 Referral None recorded. Procedures None recorded. Surgeries None recorded. Imaging None recorded. Medication Orders atorvastati n 20 mg tablet 2023 024 [facility] [facility], [place], [address], 09:50:49 Patient TargetsNo targets recorded. Patient Instructions Encounter Date Encounter Id Patient Instructions Last Modified By Organization Details Last Modified Time 01/18/2024 [id number] He'll check his BP at home .... and let us know [id number] Not available 01/18/2024 09:54:29 Reason for Referral [...] 2015, 38(Napier ppl.1 ):s13 -s22 Not Available [facility] (Lab) [address] [place], [address], 08/29/2021 17:45:17 08/30/19 22 08/29/2021 COMP MET PANEL /LIVE R carbon dioxide 26 mmol/ L 22-30 Not Available [facility] (Lab) [address] [place], [address], 08/29/2021 13:59:23 08/30/19 22 08/29/2021 COMP MET PANEL /LIVE R sodium 137 mmol/ L 137-14 5 Not Available [facility] (Lab) [address] [place], [address], 08/29/2021 13:59:23 08/30/19 22 08/29/2021 COMP MET PANEL /LIVE R potassium 4.3 mmol/ L 3.5-5. 1 Not Available [facility] (Lab) [address] [place], [address], 08/29/2021 13:59:23 08/30/19 22 08/29/2021 COMP MET PANEL /LIVE R chloride 105 mmol/ L 98-107 Not Available [facility] (Lab) [address] [place], [address], 08/29/2021 13:59:23 08/30/19 22 08/29/2021 COMP MET PANEL /LIVE R anion gap 10.3 mmol/ L 14-22 low Not Available [facility] (Lab) [address] [place], [address], 08/29/2021 13:59:23 08/30/19 22 08/29/2021 COMP MET PANEL /LIVE R glucose 110 mg/dL 70-99 high Not Available [facility] (Lab) [address] [place], [address], 08/29/2021 13:59:23 08/30/19 22 08/29/2021 COMP MET PANEL /LIVE R BUN 13 mg/dL 8-19 Not Available [facility] (Lab) [address] [place], [address], 08/29/2021 13:59:23 08/30/19 22 08/29/2021 COMP MET PANEL /LIVE R creatinine 0.94 mg/dL 0.66-1 .25 Not Available [facility] (Lab) [address] [place], [address], 08/29/2021 13:59:23 08/30/19 22 08/29/2021 COMP MET PANEL /LIVE R GFR >60 Refer ence Range : [place] ge GFR Healt hy Adult : >60 [...] calcu lator is avail able on the [facility] websi te: https ://[email or web address] w.kid tiffany.o rg/pr ofess ional s/kdo qi/gf r_cal culat or Not Available [facility] (Lab) [address] [place], [address], 08/29/2021 13:59:23 08/30/19 22 08/29/2021 COMP MET PANEL /LIVE R alkaline phosphatase 54 U/L 38-126 Not Available [facility] (Lab) [address] [place], [address], 08/29/2021 13:59:23 08/30/19 22 08/29/2021 COMP MET PANEL /LIVE R alanine aminotransfe rase 18 U/L 0-50 Not Available [facility] (Lab) [address] [place], [address], 08/29/2021 13:59:23 08/30/19 22 08/29/2021 COMP MET PANEL /LIVE R aspartate aminotransfe rase 26 U/L 15-46 Not Available [facility] (Lab) [address] [place], [address], 08/29/2021 13:59:23 08/30/19 22 08/29/2021 COMP MET PANEL /LIVE R bilirubin, total 0.60 mg/dL 0.20-1 .30 Not Available [facility] (Lab) [address] [place], [address], 08/29/2021 13:59:23 08/30/19 22 08/29/2021 COMP MET PANEL /LIVE R bilirubin, conjugated (direct) 0.00 mg/dL 0.00-0 .30 Not Available [facility] (Lab) [address] [place], [address], 08/29/2021 13:59:23 08/30/19 22 08/29/2021 COMP MET PANEL /LIVE R biliurubin,u ncong. (indirect) 0.50 mg/dL 0.00-1 .1 Not Available [facility] (Lab) [address] [place], [address], 08/29/2021 13:59:23 08/30/19 22 08/29/2021 COMP MET PANEL /LIVE R calcium 9.3 mg/dL 8.4-10 .2 Not Available [facility] (Lab) [address] [place], [address], 08/29/2021 13:59:23 08/30/19 22 08/29/2021 COMP MET PANEL /LIVE R total protein 7.0 g/dL 6.3-8. 2 Not Available [facility] (Lab) [address] [place], [address], 08/29/2021 13:59:23 08/30/19 22 08/29/2021 COMP MET PANEL /LIVE R albumin 4.5 g/dL 3.4-5. 0 Not Available [facility] (Lab) [address] [place], [address], 08/29/2021 13:59:23 08/30/19 22 08/29/2021 COMP MET PANEL /LIVE R globulin 2.5 g/dL 2.6-4. 2 low Not Available [facility] (Lab) [address] [place], [address], 08/29/2021 13:59:23 08/30/19 22 08/29/2021 COMP MET PANEL /LIVE R A/G ratio 1.8 ratio 1.0-2. 0 Not Available [facility] (Lab) [address] [place], [address], 08/29/2021 13:59:23 08/30/19 22 08/29/2021 LIPID PANEL [...] WILL NOT BE REPOR LOR. Not Available [facility] (Lab) [address] [place], [address], 08/29/2021 13:59:13 08/30/19 22 08/29/2021 LIPID PANEL cholesterol 282 mg/dL 140-19 9 high NIH ROEL NSUS RECOM MENDA TION FOR MIGUEL STERO L: ADULT CHILD LOW RISK: <200 <170 BORDE RLINE : <200- 239 ----- HIGH RISK: >240 >200 Not Available [facility] (Lab) [address] [place], [address], 08/29/2021 13:59:13 08/30/19 22 08/29/2021 LIPID PANEL triglyceride s 83 mg/dL 0-150 NIH ROEL NSUS REPOR T RECOM MENDA TION FOR TRIGL YCERI CARO: ADULT CHILD LOW RISK: <150 ----- BODER LINE: 150-1 99 ----- HIGH RISK: >200 ----- Not Available [facility] (Lab) [address] [place], [address], 08/29/2021 13:59:13 08/30/19 22 08/29/2021 LIPID PANEL HDL cholesterol 85 mg/dL 40- Not Available [facility] (Lab) [address] [place], [address], 08/29/2021 13:59:13 08/30/19 22 08/29/2021 CBC/C OMPLE TE BLD COUNT W/DIF F mean red cell volume 97.1 fL 80.0-9 7.0 high Not Available [facility] (Lab) [address] [place], [address], 08/29/2021 13:49:41 08/30/19 22 08/29/2021 CBC/C OMPLE TE BLD COUNT W/DIF F white blood cells 5.9 x10'3 /uL 4.2-10 .8 Not Available [facility] (Lab) [address] [place], [address], 08/29/2021 13:49:41 08/30/19 22 08/29/2021 CBC/C OMPLE TE BLD COUNT W/DIF F red blood cells 4.52 x10'6 /uL 4.10-5 .80 Not Available [facility] (Lab) [address] [place], [address], 08/29/2021 13:49:41 08/30/19 22 08/29/2021 CBC/C OMPLE TE BLD COUNT W/DIF F hemoglobin 15.2 g/dL 13.2-1 7.0 Not Available [facility] (Lab) [address] [place], [address], 08/29/2021 13:49:41 08/30/19 22 08/29/2021 CBC/C OMPLE TE BLD COUNT W/DIF F hematocrit 43.9 % 39.3-5 0.0 Not Available [facility] (Lab) [address] [place], [address], 08/29/2021 13:49:41 08/30/19 22 08/29/2021 CBC/C OMPLE TE BLD COUNT W/DIF F mean red cell hemoglobin 33.6 pg 27.0-3 3.0 high Not Available [facility] (Lab) [address] [place], [address], 08/29/2021 13:49:41 08/30/19 22 08/29/2021 CBC/C OMPLE TE BLD COUNT W/DIF F mean RBC HGB concentratio n 34.6 g/dL 31.0-3 6.0 Not Available [facility] (Lab) [address] [place], [address], 08/29/2021 13:49:41 08/30/19 22 08/29/2021 CBC/C OMPLE TE BLD COUNT W/DIF F red cell distribution width 12.1 % 11.8-1 5.5 Not Available [facility] (Lab) [address] [place], [address], 08/29/2021 13:49:41 08/30/19 22 08/29/2021 CBC/C OMPLE TE BLD COUNT W/DIF F platelets 240 x10'3 /uL 150-40 0 Not Available [facility] (Lab) [address] [place], [address], 08/29/2021 13:49:41 08/30/19 22 08/29/2021 CBC/C OMPLE TE BLD COUNT W/DIF F mean platelet volume 9.4 fL 9.0-12 .4 Not Available [facility] (Lab) [address] [place], [address], 08/29/2021 13:49:41 08/30/19 22 08/29/2021 CBC/C OMPLE TE BLD COUNT W/DIF F neutrophils 64.9 % 39.0-7 2.0 Not Available [facility] (Lab) [address] [place], [address], 08/29/2021 13:49:41 08/30/19 22 08/29/2021 CBC/C OMPLE TE BLD COUNT W/DIF F lymphocytes 21.5 % 16.0-4 7.0 Not Available [facility] (Lab) [address] [place], [address], 08/29/2021 13:49:41 08/30/19 22 08/29/2021 CBC/C OMPLE TE BLD COUNT W/DIF F monocytes 11.3 % 5.0-12 .0 Not Available [facility] (Lab) [address] [place], [address], 08/29/2021 13:49:41 08/30/19 22 08/29/2021 CBC/C OMPLE TE BLD COUNT W/DIF F eosinophils 1.4 % 1.0-7. 0 Not Available [facility] (Lab) [address] [place], [address], 08/29/2021 13:49:41 08/30/19 22 08/29/2021 CBC/C OMPLE TE BLD COUNT W/DIF F basophils 0.7 % 0.0-2. 0 Not Available [facility] (Lab) [address] [place], [address], 08/29/2021 13:49:41 08/30/19 22 08/29/2021 CBC/C OMPLE TE BLD COUNT W/DIF F immature granulocytes 0.2 % 0.00-0 .50 Not Available [facility] (Lab) [address] [place], [address], 08/29/2021 13:49:41 08/30/19 22 08/29/2021 CBC/C OMPLE TE BLD COUNT W/DIF F neutrophils, absolute count 3.80 x10'3 /uL 1.5-8. 0 Not Available [facility] (Lab) [address] [place], [address], 08/29/2021 13:49:41 08/30/19 22 08/29/2021 CBC/C OMPLE TE BLD COUNT W/DIF F lymphocytes, absolute count 1.26 x10'3 /uL 1.07-3 .43 Not Available [facility] (Lab) [address] [place], [address], 08/29/2021 13:49:41 08/30/19 22 08/29/2021 CBC/C OMPLE TE BLD COUNT W/DIF F monocytes, absolute count 0.66 x10'3 /uL 0.29-0 .99 Not Available [facility] (Lab) [address] [place], [address], 08/29/2021 13:49:41 08/30/19 22 08/29/2021 CBC/C OMPLE TE BLD COUNT W/DIF F eosinophils, absolute count 0.08 x10'3 /uL 0.02-0 .53 Not Available [facility] (Lab) [address] [place], [address], 08/29/2021 13:49:41 08/30/19 22 08/29/2021 CBC/C OMPLE TE BLD COUNT W/DIF F basophils, absolute count 0.04 x10'3 /uL 0.01-0 .08 Not Available [facility] (Lab) [address] [place], [address], 08/29/2021 13:49:41 08/30/19 22 08/29/2021 CBC/C OMPLE TE BLD COUNT W/DIF F immature granulocytes ,absolute 0.01 x10'3 /uL 0.00-0 .05 Not Available [facility] (Lab) [address] [place], [address], 08/29/2021 13:49:41 08/30/19 22 08/29/2021 CBC/C OMPLE TE BLD COUNT W/DIF F nucleated red blood cells 0.0 % -0 Not Available [facility] (Lab) [address] [place], [address], 08/29/2021 13:49:41 08/30/19 22 08/29/2021 CBC/C OMPLE TE BLD COUNT W/DIF F NRBC# 0.00 x10'3 /uL Not Available [facility] (Lab) [address] [place], [address], 08/29/2021 13:49:41 10/23/19 22 10/22/2021 COLOG UARD cologuard result reportable negati ve negati ve NEGAT BRANDY TEST RESUL T. A negat brandy Colog uard resul t indic ates a low likel ihood that a color ectal cance r (CRC) or advan boubacar adeno ma (dax omato us polyp s with more advan boubacar pre-m align ant featu res) is prese nt. [facility] e that a perso n with a negat brandy Colog uard test has a color ectal cance r is less than 1 in 1500 (nega tive predi ctive value >99.9 %) or has an advan obubacar adeno ma is less than 5.3% (nega tive predi ctive value 94.7% ). These data are based on a prosp ectiv e cross -sect ional study of 10,00 0 indiv idual s at olivet ge risk for color ectal cance r [...] 112:1 016-1 030. TEST DESCR IPTIO N: [place] site algor ithmi c kee sis of [...] years or older , who are at [facility] for color ectal cance r (CRC) . Colog uard has been appro [place] for use by the [place] FDA. The perfo rmanc e of Colog uard was estab lishe d in a cross secti onal study of [facility] adult s aged 50-84 . Colog [...] boubacar adeno ma (incl uding sessi le ardha lor polyp s great er than or equal to 1cm diame ter) [20%] or non- advan boubacar adeno ma [31%] ; or no color ectal neopl eva [45%] . These estim ates are deriv ed from a prosp ectiv e cross -sect ional scree elaine study of 0 indiv idual s at olivet ge risk for color ectal cance r [...] at www.c gonzález curried.c om. Not Available [facility] [address], [place], [address], 10/31/2021 11:21:08 03/19/20 23 03/19/2023 LIPID PANEL cholesterol 187 mg/dL 140-19 9 NIH ROEL NSUS RECOM MENDA TION FOR MIGUEL STERO L: ADULT CHILD LOW RISK: <200 <170 BORDE RLINE : <200- 239 ----- HIGH RISK: >240 >200 Not Available [facility] (Lab) [address] [place], [address], 03/19/2023 13:52:28 03/19/20 23 03/19/2023 LIPID PANEL triglyceride s 74 mg/dL 0-150 NIH ROEL NSUS REPOR T RECOM MENDA TION FOR TRIGL YCERI CARO: ADULT CHILD LOW RISK: <150 ----- BODER LINE: 150-1 99 ----- HIGH RISK: >200 ----- Not Available [facility] (Lab) [address] [place], [address], 03/19/2023 13:52:28 03/19/20 23 03/19/2023 LIPID PANEL HDL cholesterol 96 mg/dL 40- Not Available [facility] (Lab) [address] [place], [address], 03/19/2023 13:52:28 03/19/20 23 03/19/2023 LIPID PANEL [...] WILL NOT BE REPOR LOR. Not Available [facility] (Lab) [address] [place], [address], 03/19/2023 13:52:28 03/19/20 23 03/19/2023 COMPR EHENS BRANDY METAB OLIC PANEL sodium 138 mmol/ L 137-14 5 Not Available [facility] (Lab) [address] [place], [address], 03/19/2023 13:52:31 03/19/20 23 03/19/2023 COMPR EHENS BRANDY METAB OLIC PANEL potassium 4.4 mmol/ L 3.5-5. 1 Not Available [facility] (Lab) [address] [place], [address], 03/19/2023 13:52:31 03/19/20 23 03/19/2023 COMPR EHENS BRANDY METAB OLIC PANEL chloride 103 mmol/ L 98-107 Not Available [facility] (Lab) [address] [place], [address], 03/19/2023 13:52:31 03/19/20 23 03/19/2023 COMPR EHENS BRANDY METAB OLIC PANEL carbon dioxide 29 mmol/ L 22-30 Not Available [facility] (Lab) [address] [place], [address], 03/19/2023 13:52:31 03/19/20 23 03/19/2023 COMPR EHENS BRANDY METAB OLIC PANEL anion gap 10.4 mmol/ L 14-22 low Not Available [facility] (Lab) [address] [place], [address], 03/19/2023 13:52:31 03/19/20 23 03/19/2023 COMPR EHENS BRANDY METAB OLIC PANEL glucose 124 mg/dL 70-99 high Not Available [facility] (Lab) [address] [place], [address], 03/19/2023 13:52:31 03/19/20 23 03/19/2023 COMPR EHENS BRANDY METAB OLIC PANEL BUN 13 mg/dL 8-19 Not Available [facility] (Lab) [address] [place], [address], 03/19/2023 13:52:31 03/19/20 23 03/19/2023 COMPR EHENS BRANDY METAB OLIC PANEL creatinine 0.88 mg/dL 0.66-1 .25 Not Available [facility] (Lab) [address] [place], [address], 03/19/2023 13:52:31 03/19/20 23 03/19/2023 COMPR EHENS BRANDY METAB OLIC PANEL GFR >60 Refer ence Range : [place] ge GFR Healt hy Adult : >60 [...] calcu lator is avail able on the [facility] websi te: https ://[email or web address] [email or web address].beulah [email or web address].o van/pr ofess ional s/kdo qi/gf r_cal culat or Not Available [facility] (Lab) [address] [place], [address], 03/19/2023 13:52:31 03/19/20 23 03/19/2023 COMPR EHENS BRANDY METAB OLIC PANEL alkaline phosphatase 53 U/L 38-126 Not Available [facility] (Lab) [address] [place], [address], 03/19/2023 13:52:31 03/19/20 23 03/19/2023 COMPR EHENS BRANDY METAB OLIC PANEL alanine aminotransfe rase 23 U/L 0-50 Not Available [facility] (Lab) [address] [place], [address], 03/19/2023 13:52:31 03/19/20 23 03/19/2023 COMPR EHENS BRANDY METAB OLIC PANEL aspartate aminotransfe rase 26 U/L 15-46 Not Available [facility] (Lab) [address] [place], [address], 03/19/2023 13:52:31 03/19/20 23 03/19/2023 COMPR EHENS BRANDY METAB OLIC PANEL bilirubin, total 0.90 mg/dL 0.20-1 .30 Not Available [facility] (Lab) [address] [place], [address], 03/19/2023 13:52:31 03/19/20 23 03/19/2023 COMPR EHENS BRANDY METAB OLIC PANEL calcium 9.8 mg/dL 8.4-10 .2 Not Available [facility] (Lab) [address] [place], [address], 03/19/2023 13:52:31 03/19/20 23 03/19/2023 COMPR EHENS BRANDY METAB OLIC PANEL total protein 7.2 g/dL 6.3-8. 2 Not Available [facility] (Lab) [address] [place], [address], 03/19/2023 13:52:31 03/19/20 23 03/19/2023 COMPR EHENS BRANDY METAB OLIC PANEL albumin 4.5 g/dL 3.0-4. 4 high Not Available [facility] (Lab) [address] [place], [address], 03/19/2023 13:52:31 03/19/20 23 03/19/2023 COMPR EHENS BRANDY METAB OLIC PANEL globulin 2.7 g/dL 2.6-4. 2 Not Available [facility] (Lab) [address] [place], [address], 03/19/2023 13:52:31 03/19/20 23 03/19/2023 COMPR EHENS BRANDY METAB OLIC PANEL A/G ratio 1.7 ratio 1.0-2. 0 Not Available [facility] (Lab) [address] [place], [address], 03/19/2023 13:52:31 03/19/20 23 03/19/2023 PSA SCREE N PSA medicare screen 2.97 NG/mL 0.00-4 .00 Not Available [facility] (Lab) [address] [place], [address], 03/19/2023 14:35:22 11/15/19 22 XR, lumbo sacra l spine , 4 or more view [facility] [address] [facility] [place] [address] Andrea esqueda Name: USMAN MARKS Access ion #: [id number] Sex: M : 1960 7 Locati on: RA2 Attend ing Physic allison: BRIANNA [facility] allison: BRIANNA MCGRATH Exam Date: 022 [...] ction identi fied. Page 1 of 2 [facility] Patiwade t Name: USMAN MARKS Access ion #: [id number] Sex: M : 1960 7 Exam [...] 12:45 PM (CT) Page 2 of 2 [id number] [facility] (Imaging) [address] [place], [address], 05/21/2022 08:54:52 11/15/19 22 11/14/2021 XR, lumba r spine No observ ation record ed. [id number] [facility] [address] [place] [address], [place], [address], 05/21/2022 08:54:52 11/15/19 22 11/14/2021 XR, lumba r spine No observ ation record ed. [id number] [facility] Add On Lab Orders [address] [place], [address], 05/21/2022 08:54:52 11/15/19 22 XR, knee, 3 view [facility] [address] [place] [address] Andrea esqueda Name: USMAN MARKS Access ion #: [id number] Sex: M : 1960 7 Locati [...] the left knee. Page 1 of 2 [facility] Andrea esqueda Name: SELINA CATHERINEAraceli Momin Access ion #: [id number] Sex: M : 1960 7 Exam Date: 11:13 AM Exam Name: XR KNEE LT 3V Admitt ing Diagno sis(es ): Create d and electr onical ly signed by: Bo barry MD Signed Date: 12:44 PM (CT) Dictat ed by: Bo barry MD DD: 12:44 PM (CT) DT: 12:44 PM (CT) Page 2 of 2 [id number] [facility] (Imaging) [address] [place], [address], 05/21/2022 08:54:52 01/31/20 22 01/29/2022 MRI, knee, w/o contr ast No observ ation record ed. MIGRATION. [id number] [facility] [address], [place], [address], 05/21/2022 08:54:52 03/05/20 MRI, lumba r spine , w/o contr ast [facility] [address] [place] [address] [phone] [place] esqueda Name: USMAN MARKS Access ion #: [id number] Sex: M : 1960 6 Locati [...] T1 signal intens ity within the mid decorating consultant ior aspect of the T11 verteb ral body measur ing 7 mm demons tratin g hyperi ntensi ty with T2 weight ing. *Modic marrow signal intens ity noted at the anteri or inferi or aspect of T12. Page 1 of 3 [facility] Patien t Name: USMAN MARKS Access ion #: [id number] Sex: M : 1960 6 Exam [...] or neural forami nal stenos is. 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 [id number] [facility] [address] [place] [address] , [place], [address], 05/21/2022 08:54:52 Result Notes Documentation Provider Name and Address Organization Details Recorded Time Xr, Knee, 3 View : [facility] [address] [place] [address] Patient Name: VIK MARKS Sex: M : 1960 Location: [facility] Attending Physician: BRIANNA CARRILLO Ordering Physician: BRIANNA [...] the left knee. Page 1 of 2 [facility] Patient Name: VIK MARKS Sex: M : 1960 Exam Date: 11/14/2021 11:13 AM Exam Name: XR KNEE LT 3V Admitting Diagnosis(es): Created and electronically signed by: Bo Jiménez MD Signed Date: 11/14/2021 12:44 PM (CT) Dictated by: Bo Jiménez MD (CT) (CT) Page 2 of 2 Not Available [facility] 05/21/2022 08:54:53 Xr, Lumbosacral Spine, 4 Or More View : [address] [address] Patient Name: VIK MARKS Sex: M : 1960 Location: [facility] Attending Physician: BRIANNA CARRILLO Ordering Physician: BRIANNA [...] bone destruction identified. Page 1 of 2 [facility] Patient Name: VIK MARKS Sex: M : [...] (CT) Page 2 of 2 Not Available [facility] 05/21/2022 08:54:53 Mri, Lumbar Spine, W/o Contrast : [address] [address] Patient Name: VIK MARKS Sex: M : 1960 Location: [facility] Attending Physician: IDALMIS ORDAZ Ordering Physician: IDALMIS [...] aspect of T12. Page 1 of 3 [facility] Patient Name: VIK MARKS Sex: M : [...] mild to moderate central spinal stenosis with [id number]-cfeufuyt left neural foraminal stenosis IMPRESSION: 1. Nonspecific Bone lesion within the T11 vertebral body. A CT and bone scan Page 2 of 3 [facility] Patient Name: VIK MARKS Sex: Merrill : 1960 Exam Date: 03/05/2022 8:01 AM Exam Name: MRI L SPINE WO Admitting Diagnosis(es): of the T11 vertebral body region will prove beneficial. 2. Other levels described above. Created and electronically signed by: Bo Jiménez MD Signed Date: 03/05/2022 11:23 AM (CT) Dictated by: Bo Jiménez MD (CT) (CT) Page 3 of 3 Not Available [facility] 05/21/2022 08:54:53 Problems Name Problem SNOMED Code Status Onset Date Resolution Date Notes Provider Name and Address Organization Details Recorded Time Hyperglycemia 84234991 Active 2019 Not Available [facility] 4 04:04:39 Cervical radiculopathy 86101603 Active 2019 Not Available [facility] 4 04:04:39 History of surgical procedure on cervical spine 105762900 Active 2019 Not Available [facility] 4 04:04:38 Hyperlipidemi a 36451010 Active 2021 Not Available [facility] 4 04:04:39 Spinal stenosis 61738430 Active 2021 Not Available [facility] 4 04:04:39 Low back pain 797265592 Active 2022 Not Available [facility] 4 04:04:38 Chronic low back pain 743908464 Active 2022 Not Available [facility] 4 04:04:38 SARS-CoV-2 Active 2023 Not Available [facility] 4 04:04:39 Adult health examination Active 2023 FARRAH Beckett [address], [address], [place], [address] , [employer] 4 09:48:13 Screening for malignant neoplasm of prostate Active 2023 FARRAH Beckett [address], [address], [place], [address] , [email or web address] 4 09:50:22 At increased risk for nutritional problem 772651425 Active 2023 FARRAH Beckett [address], [address], [place], [address] , [employer] 4 09:51:37 Problem Notes None recorded. Procedures [...] Name and Address Organization Details Recorded Time 65356 Product containin g penicilli n (product) medicatio n Not available Not available Not available 05/21/2022 28626 8001 SNOMED Not Available [facility] 3 08:54:42 Medications Name Sig Start Date [...] Not Available Not Available Not Available Fluvirin 9363-6901(P F) 45 mcg (15 mcg x3)/0.5 mL [...] cm 97 % 76 /min 97.1 [degF] 52605.5 6 g 124/82 mm[Hg] Not Available [facility] 3 08:46:23 Date Recorded Body mass index (BMI) Body height Oxygen saturation Heart rate Body temperature Body weight Systolic And Diastolic Provider Name and Address Organization Details Last Updated DateTime 2 28 kg/m2 160.02 cm 98 % 78 /min 98.4 [degF] 03595.5 9 g 152/90 mm[Hg] Not Available [facility] 3 08:46:23 Date Recorded Body height Body mass index (BMI) Body weight Body temperature Heart rate Oxygen saturation Systolic And Diastolic Provider Name and Address Organization Details Last Updated DateTime 3 160.02 cm 28.7 kg/m2 85717.9 6 g 97.4 [degF] 70 /min 98 % 140/78 mm[Hg] Kristyn calloway CMA [facility] 3 11:06:08 Date Recorded Body height Body mass index (BMI) Body weight Body temperature Heart rate Oxygen saturation Systolic And Diastolic Provider Name and Address Organization Details Last Updated DateTime 4 160.02 cm 28.2 kg/m2 62424.1 9 g 97.9 [degF] 63 /min 100 % 152/90 mm[Hg] Nurys Maldonado RN [facility] 4 09:24:46 Date Recorded Body mass index (BMI) Body height Oxygen saturation Heart rate Body temperature Body weight Systolic And Diastolic Provider Name and Address Organization Details Last Updated DateTime 2 28.7 kg/m2 160.02 cm 97 % 91 /min 98.2 [degF] 09473.9 6 g 160/100 mm[Hg] Not Available [facility] 3 08:46:23 Social History Question Answer Notes LastModified by [employer] Details LastModified Time Tobacco Smoking Status Never Smoker Not Available [facility] 05/21/2022 08:44:38 What Is Your Level Of Caffeine Consumption? Moderate [id number] Information not available 05/21/2022 How Much Tobacco Do You Chew? None [id number] Information not available 05/21/2022 What Type Of Diet Are You Following? REGULAR [id number] Information not available 05/21/2022 Which Illicit Or Recreational Drugs Have You Used? No [id number] Information not available 05/21/2022 Sex: Unknown Functional Status Question Answer Note LastModified by [employer] Details LastModified Time What is your level of alcohol consumption? Moderate [id number] Information not available 05/21/2022 Mental Status None recorded. Family History Relationship Description Onset Age of this Age Resolved Age Notes LastModified by Organization Details LastModified Time Father No current problems or disability [id number] Not available 05/21/2022 08:45:06 Mother No current problems or disability [id number] Not available 05/21/2022 08:45:06 Medical History No medical history recorded. Immunizations Vaccine Type Date Status Note Provider Nam e and Address Organization Details Recorded Time influenza, unspecified formulation 4 completed Nurys Maldonado RN null, [place] - [facility] [email or web address] 03/14/2024 08:33:02 COVID-19, mRNA, LNP-S, PF, 100 mcg/0.5mL dose or 50 mcg/0.25mL dose 2 completed Not Available [facility] 04/03/2023 04:04:39 Tdap 2 completed Not Available [facility] 04/03/2023 04:04:39 Influenza, split virus, quadrivalent, preservative 9 completed Not Available [facility] 04/03/2023 04:04:39 Influenza, split virus, quadrivalent, preservative 8 completed Not Available [facility] 04/03/2023 04:04:39 Influenza, split virus, trivalent, preservative 4 completed Not Available [facility] 04/03/2023 04:04:39 Past Encounters Encounter ID Performer Location Encounter Start Date Encounter Closed Date Diagnosis/Indication Diagnosis SNOMED-CT Code Diagnosis ICD10 Code Diagnosis IMO Codes Diagnosis Note [id number] [facility] Kym tavarez [facility] [place] [address] [address] 06/19/2020 00:00:00 06/19/2020 11:29:31 [id number] [facility] Kym tavarez [facility] [place] [address] 06/26/2020 00:00:00 06/26/2020 09:50:55 [id number] Idalmis Drew MD [facility] Jarocho sridevi [facility] [place] [address] [place] [address] 08/29/2020 00:00:00 08/29/2020 09:32:53 [id number] Idalmis Drew MD [facility] [place] [address] [place] [address] 12/24/2020 00:00:00 12/24/2020 15:36:47 [id number] Idalmis Drew MD [facility] [place] [address] [place] [address] 08/29/2021 00:00:00 08/29/2021 09:21:01 [id number] [facility] [place] [address] [place] [address] 11/14/2021 00:00:00 11/14/2021 12:12:50 [id number] Idalmis Drew MD [facility] [place] [address] [place] [address] 02/11/2022 00:00:00 02/11/2022 19:21:13 [id number] Idalmis Drew MD [facility] [place] [address] [place] [address] 01/15/2023 10:58:31 01/15/2023 11:26:55 Adult health examination 446342036 Z00.00 Hyperlipidemia 49386757 E78.5 Screening for malignant neoplasm of prostate 273105818 Z12.5 [id number] Crescencio Hurley MD [facility] [place] [address] [place] [address] 01/18/2024 09:03:35 01/18/2024 09:55:07 Hyperlipidemia 39498550 E78.5 Cervical radiculopathy 23341046 M54.12 Chronic low back pain [address] [facility] th examination 580473408 Z00.00 Spinal stenosis 86076210 M48.00 Screening for malignant neoplasm of prostate 957536982 Z12.5 At [facility] risk for nutritional problem 991622391 Z91.89 Health Concerns Section Related Observation LastModified by Organization Detai ls LastModified Time None Recorded Concern Status LastModified by Organization Details LastModified Time None Recorded Advance Directives Directive None Recorded Payers Insurance Date Sequence Insurance Name Policy Number Policy Damon Covered Member ID Damon Member ID Guarantor Name 02/24/2024 1 [facility] [id number] Mervat Marks [id number] Vik Marks Notes Date Note Type Note Provider Name and Address Organization Details Recorded Time 01/15/2023 text/html Here today for annual physical. Needs BW. No fmhx of colon cancer and did cologuard and was negative. No pmhx of prostate cancer. No prostate exam. He has no complaints Idalmis Drew MD [address], [address], [place], [address], [employer] 01/15/2023 21:49:47 01/18/2024 text/html ROS as noted in the HPI retired last year. did a cologuard last year FARRAH Beckett [address], [place], [address], [employer] 02/14/2024 17:17:55
--- OUTSIDE RECORDS SUMMARY | 2025-03-21 12:31 | XMS_ITS | Clinical Summary ---
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
== END 2025-03-21 11:56 | disposition home or self-care (01) ==
PROVIDERS: PCP Nurse Practitioner Adult Health; Visit Provider Urology
DX: C61 Malignant neoplasm of prostate (principal)
CPT/HCPCS: 51600; 74430; Q9967